=== PATIENT | male | born 1985 ===

== ENCOUNTER 2017-05-31 17:16 | Emergency (ER) | payer MEDICAID ==
[2017-05-31 17:20] VITALS: BP 158/59; PULSE 85; RESP 18; TEMP 98.3; O2SAT 99
--- NOTE | 2017-05-31 17:39 | ED PDOC ---
HPI: Altered Mental Status Time Seen by Provider: 05/31/17 17:19 Chief Complaint (Nursing): Medical Clearance Chief Complaint (Provider): Medical Clearance History Per: Patient History/Exam Limitations: None Onset/Duration Of Symptoms: Mins (prior to arrival) Current Symptoms Are (Timing): Still Present Additional Complaint(s): Arthur Fletcher is a 32 year old male who presents to the emergency department via [place] police department for psychiatric evaluation while detained stating that "he does not feed good in the head". Patient reported feeling traumatized by police for wrongful arrest. Refused to provide any history. PMD: none provided Past Medical History Reviewed: Nursing Documentation, Vital Signs Vital Signs: Last Vital Signs Temp 98.3 F 05/31/17 17:18 Pulse 85 05/31/17 17:18 Resp 18 05/31/17 17:18 BP 158/59 H 05/31/17 17:18 Pulse Ox 99 05/31/17 17:18 - Family History Family History: States: Unknown Family Hx - Allergies Allergies/Adverse Reactions: Allergies Allergy/AdvReac Type Severity Reaction Status Date / Time shellfish derived Allergy RASH Verified 05/31/17 17:17 Review of Systems Review Of Systems: ROS cannot be obtained secondary to pt's inabilty to answer questions. (AMS) - ECG O2 Sat by Pulse Oximetry: 99 (RA) Pulse Ox Interpretation: Normal Medical Decision Making Medical Decision Making: Initial Impression: Medical clearance for incarceration Initial Plan: * Crisis evaluation -See crisis note * Pt without any physical complaints, calm and cooperative, physical exam benign. No medical intervention needed at this time Scribe Attestation: Documented by Funmilayo Briones, acting as a scribe for Jailyn Hackett Provider Scribe Attestation: All medical record entries made by the Scribe were at my direction and personally dictated by me. I have reviewed the chart and agree that the record accurately reflects my personal performance of the history, physical exam, medical decision making, and the department course for this patient. I have also personally directed, reviewed, and agree with the discharge instructions and disposition. Disposition - Clinical Impression Clinical Impression: Adjustment disorder - Patient ED Disposition Is Patient to be Admitted: No - Disposition Disposition: Discharged/Transfer to Law Enforcement Disposition Time: 18:57 Condition: STABLE Additional Instructions: Patient is medically and psychiatrically cleared for incarceration at this time Instructions: Mood Disorders (ED) Forms: [facility] (Norwegian) - POA Present On Arrival: None
== END 2017-05-31 18:50 ==
LOC: H.ER 17:16 → MERGE 17:16 → H.ER 18:50
DX: Z02.89 Encounter for other administrative examinations (principal); F43.20 Adjustment disorder, unspecified

== ENCOUNTER 2017-10-19 06:30 | Emergency (ER) | payer MEDICAID ==
[2017-10-19 06:39] VITALS: BP 139/90; PULSE 112; RESP 16; TEMP 98.1; O2SAT 99
== END 2017-10-19 07:35 | disposition left against medical advice (07) ==
LOC: H.ER 06:30
DX: R07.89 Other chest pain (principal)

== ENCOUNTER 2017-12-28 02:40 | Emergency (ER) | payer MEDICAID ==
[2017-12-28 02:45] VITALS: TEMP 98.2
[2017-12-28 03:19] LABS: BASO # 0.1 K/uL (0.0-0.2); BASO % 0.3 % (0.0-2.0); EOS # 0.1 K/uL (0.0-0.7); EOS % 0.8 % (0.0-4.0); HEMOGLOBIN 14.6 g/dL (12.0-18.0); LYMPH # 1.8 K/uL (1.0-4.3); LYMPH % 12.1 % (20.0-40.0); MEAN CELL VOLUME 88.2 fl (80.0-94.0); MEAN CORPUSCULAR HEMOGLOBIN 30.1 pg (27.0-31.0); MEAN CORPUSCULAR HGB CONC 34.2 g/dL (33.0-37.0); MEAN PLATELET VOLUME 8.2 fl (7.2-11.7); MONO # 0.9 K/uL (0.0-0.8); MONO % 6.4 % (0.0-10.0); NEUT # 11.7 K/uL (1.8-7.0); NEUT % 80.4 % (50.0-75.0); RBC 4.83 Mil/uL (4.40-5.90); RED CELL DISTRIBUTION WIDTH 12.9 % (11.5-14.5); WHITE BLOOD COUNT 14.5 K/uL (4.8-10.8)
--- NOTE | 2017-12-28 03:28 | ED PDOC ---
HPI: Chest Pain Time Seen by Provider: 12/28/17 02:48 Chief Complaint (Nursing): Chest Pain Chief Complaint (Provider): Chest Pain History Per: Patient History/Exam Limitations: no limitations Onset/Duration Of Symptoms: Hrs (x5) Current Symptoms Are (Timing): Still Present Additional Complaint(s): 32 year old male with no significant past medical history, who presents to the ED complaining of chest pain x5 hours. Patient states his pain began sniffing cocaine at 9pm. Also complaining of nose pain. Denies shortness of breath, trauma, or other drug use. PMD: None provided Past Medical History Reviewed: Historical Data, Nursing Documentation, Vital Signs Vital Signs: Last Vital Signs Temp 98.2 F 12/28/17 02:43 Pulse 104 H 12/28/17 02:43 Resp 18 12/28/17 02:43 BP 139/86 12/28/17 02:43 Pulse Ox 97 12/28/17 05:27 - Medical History PMH: Asthma, Bronchitis Denies: Diabetes, HIV, HTN, Seizures, Sexually Transmitted Disease - Family History Family History: States: Unknown Family Hx, Hypertension - Social History Drugs: Cocaine - Immunization History Hx Tetanus Toxoid Vaccination: Yes (03/23/2013) Hx Influenza Vaccination: (unknown) Hx Pneumococcal Vaccination: (unknown) - Home Medications Home Medications: Ambulatory Orders Medication Instructions Recorded No Known Home Med 01/22/17 - Allergies Allergies/Adverse Reactions: Allergies Allergy/AdvReac Type Severity Reaction Status Date / Time FISH Allergy RASH Verified 07/21/17 10:32 shellfish derived Allergy RASH Verified 07/21/17 10:32 Review of Systems ROS Statement: Except As Marked, All Systems Reviewed And Found Negative ENT: Positive for: Nose Pain Cardiovascular: Positive for: Chest Pain Respiratory: Negative for: Shortness of Breath Physical Exam - Reviewed Nursing Documentation Reviewed: Yes Vital Signs Reviewed: Yes - Physical Exam Appears: Positive for: Non-toxic, No Acute Distress Head Exam: Positive for: ATRAUMATIC, NORMAL INSPECTION, NORMOCEPHALIC Skin: Positive for: Normal Color, Warm, Dry. Negative for: Rash Eye Exam: Positive for: EOMI, Normal appearance, PERRL ENT: Positive for: Other (nasal passages dry and irritated) Neck: Positive for: Normal, Painless ROM, Supple Cardiovascular/Chest: Positive for: Regular Rate, Rhythm. Negative for: Murmur Respiratory: Positive for: Normal Breath Sounds. Negative for: Respiratory Distress Gastrointestinal/Abdominal: Positive for: Normal Exam, Bowel Sounds, Soft. Negative for: Tenderness Back: Positive for: Normal Inspection. Negative for: L CVA Tenderness, R CVA Tenderness, Vertebral Tenderness Extremity: Positive for: Normal ROM. Negative for: Pedal Edema, Deformity Neurologic/Psych: Positive for: Alert, Oriented (x3). Negative for: Motor/ Sensory Deficits - Laboratory Results Result Diagrams: 12/28/17 03:16 12/28/17 03:16 - ECG O2 Sat by Pulse Oximetry: 97 (RA) Pulse Ox Interpretation: Normal Medical Decision Making Medical Decision Making: Time: 02:58 Initial Impression: Cocaine induced chest pain Initial Plan: --EKG --BMP --Troponin I --CBC w/ differential --Ativan 0.5 mg IV --Sock Boarder --Reevaluation Time: 05:20 Upon provider evaluation patient is feeling better, and requires no further treatment in the ED at this time. Counseling was provided and all questions were answered regarding diagnosis. There is agreement to discharge plan. Return if symptoms persist or worsen. Scribe Attestation: Documented by Jose David Patel, acting as a scribe for John Sanchez MD. Provider Scribe Attestation: All medical record entries made by the Scribe were at my direction and personally dictated by me. I have reviewed the chart and agree that the record accurately reflects my personal performance of the history, physical exam, medical decision making, and the department course for this patient. I have also personally directed, reviewed, and agree with the discharge instructions and disposition. Disposition - Clinical Impression Clinical Impression: Cocaine abuse, Chest pain - Patient ED Disposition Is Patient to be Admitted: No Counseled Patient/Family Regarding: Studies Performed, Diagnosis - Disposition Referrals: [facility] [Outside] Disposition: Routine/Home Disposition Time: 05:20 Condition: STABLE Instructions: Chest Pain, Cocaine Use Disorder Forms: [employer] (Polish)
[2017-12-28 03:30] LABS: BLOOD UREA NITROGEN 15 mg/dl (9-20); CALCIUM 9.2 mg/dL (8.4-10.2); GFR AFRICAN-AMERICAN > 60; GFR NON-AFRICAN AMERICAN > 60
[2017-12-28 05:44] VITALS: BP 133/76; PULSE 84; RESP 14; O2SAT 98
--- NOTE | 2017-12-29 12:13 | CARD ---
APPROVED REPORT EKG Measurement Heart [id number] <Conclusion> Normal sinus rhythm Normal ECG
== END 2017-12-28 06:19 | disposition home or self-care (01) ==
LOC: H.ER 02:40
DX: R07.89 Other chest pain (principal); F14.10 Cocaine abuse, uncomplicated; J45.909 Unspecified asthma, uncomplicated
CPT/HCPCS: 80048; 84484; 85025; 93005; 96374; 99282; J2060

== ENCOUNTER 2018-01-03 03:16 | Emergency (ER) | payer MEDICAID ==
[2018-01-03 03:38] VITALS: TEMP 98.3
[2018-01-03 03:41] VITALS: BP 123/81
--- NOTE | 2018-01-03 04:54 | ED PDOC ---
HPI: Chest Pain Time Seen by Provider: 01/03/18 03:56 Chief Complaint (Nursing): Chest Pain Chief Complaint (Provider): Chest Pain History Per: Patient History/Exam Limitations: no limitations Past Medical History Reviewed: Historical Data, Nursing Documentation, Vital Signs Vital Signs: Last Vital Signs Temp 98.3 F 01/03/18 03:36 Pulse 104 H 01/03/18 04:10 Resp 19 01/03/18 04:10 BP 123/81 01/03/18 03:36 Pulse Ox 95 01/03/18 04:10 - Medical History PMH: Asthma, Bronchitis Denies: Diabetes, HIV, HTN, Seizures, Sexually Transmitted Disease - Surgical History Surgical History: No Surg Hx - Family History Family History: States: Unknown Family Hx, Hypertension - Social History Ex-Smoker (has not smoked in the last 12 months): Yes (4-5 cigarettes/day) Alcohol: None Drugs: Cocaine, Other (Occassional Marijuana use) - Immunization History Hx Tetanus Toxoid Vaccination: Yes (03/23/2013) Hx Influenza Vaccination: (unknown) Hx Pneumococcal Vaccination: (unknown) - Home Medications Home Medications: Ambulatory Orders Medication Instructions Recorded No Known Home Med 01/22/17 - Allergies Allergies/Adverse Reactions: Allergies Allergy/AdvReac Type Severity Reaction Status Date / Time FISH Allergy RASH Verified 01/03/18 03:36 shellfish derived Allergy RASH Verified 01/03/18 03:36 Review of Systems ROS Statement: Except As Marked, All Systems Reviewed And Found Negative (As per HPI, otherwis negative) Cardiovascular: Positive for: Chest Pain Gastrointestinal: Negative for: Nausea, Vomiting, Abdominal Pain Neurological: Negative for: Headache Physical Exam - Reviewed Nursing Documentation Reviewed: Yes Vital Signs Reviewed: Yes - Physical Exam Appears: Positive for: Well, Non-toxic, No Acute Distress (Patient) - ECG O2 Sat by Pulse Oximetry: 95 Disposition - Disposition
--- NOTE | 2018-01-03 04:58 | ED PDOC ---
HPI: Chest Pain Time Seen by Provider: 01/03/18 03:56 Chief Complaint (Nursing): Chest Pain Chief Complaint (Provider): Chest Pain History Per: Patient History/Exam Limitations: no limitations Additional Complaint(s): 32 y/o male presents to the ED for evaluation of intermittent episodes of chest pain since 1am today. Patient states the pain is mid to left sided , sharp, and there no relieving factors. Pain started after snorting cocaine tonight around 8 -9p. Patient states that he has history of similar symptoms after using cocaine and was evaluated earlier in week for same. Patient denies any discomfort at present. Denies nausea, vomiting, abdominal pain, headache or any further medical complaints. PMD: none Past Medical History Reviewed: Historical Data, Nursing Documentation, Vital Signs Vital Signs: Last Vital Signs Temp 98.3 F 01/03/18 03:36 Pulse 90 01/03/18 05:04 Resp 17 01/03/18 05:04 BP 123/81 01/03/18 03:36 Pulse Ox 95 01/03/18 05:20 - Medical History PMH: Asthma, Bronchitis Denies: Diabetes, HIV, HTN, Seizures, Sexually Transmitted Disease - Surgical History Surgical History: No Surg Hx - Family History Family History: States: Unknown Family Hx, Hypertension - Social History Current smoker - smoking cessation education provided: Yes (4-5 cigarettes daily ) Alcohol: None Drugs: Cocaine, Other (Occassional Marijuana use) - Immunization History Hx Tetanus Toxoid Vaccination: Yes (03/23/2013) Hx Influenza Vaccination: (unknown) Hx Pneumococcal Vaccination: (unknown) - Home Medications Home Medications: Ambulatory Orders Medication Instructions Recorded No Known Home Med 01/22/17 - Allergies Allergies/Adverse Reactions: Allergies Allergy/AdvReac Type Severity Reaction Status Date / Time FISH Allergy RASH Verified 01/03/18 03:36 shellfish derived Allergy RASH Verified 01/03/18 03:36 Review of Systems ROS Statement: Except As Marked, All Systems Reviewed And Found Negative (As per HPI,otherwise negative) Cardiovascular: Positive for: Chest Pain Gastrointestinal: Negative for: Nausea, Vomiting, Abdominal Pain Neurological: Negative for: Headache Physical Exam - Reviewed Nursing Documentation Reviewed: Yes Vital Signs Reviewed: Yes - Physical Exam Appears: Positive for: Well, Non-toxic, No Acute Distress (Patient is resting comfortably in bed) Head Exam: Positive for: ATRAUMATIC, NORMOCEPHALIC Skin: Positive for: Normal Color, Warm, Dry Eye Exam: Positive for: Normal appearance, EOMI, PERRL, Conjunctival injection. Negative for: Nystagmus Neck: Positive for: Painless ROM, Supple Cardiovascular/Chest: Positive for: Regular Rate, Rhythm, Chest Non Tender. Negative for: Murmur Respiratory: Positive for: Normal Breath Sounds. Negative for: Decreased Breath Sounds, Accessory Muscle Use, Respiratory Distress Gastrointestinal/Abdominal: Positive for: Bowel Sounds, Soft. Negative for: Tenderness, Guarding Back: Positive for: Normal Inspection. Negative for: L CVA Tenderness, R CVA Tenderness Extremity: Positive for: Normal ROM. Negative for: Deformity Neurologic/Psych: Positive for: Alert, pulmonary function technician II-XII (grossly intact), Oriented (x3 ), Gait (steady). Negative for: Aphasia, Facial Droop - ECG O2 Sat by Pulse Oximetry: 95 (RA) Pulse Ox Interpretation: Normal Medical Decision Making Medical Decision Making: Time: 04:00 Initial Impression: Chest pain secondary to drug use Plan: Troponin I Ativan 2mg PO EKG 0430 EKG reviewed: ST @ 106bpm (-) ST elevations, normal axis. QTc 430. 0510 Troponin <0.01 Repeat HR 90, VSS On re-evaluation, patient reports improvement of symptoms, denies any chest pain at present. On exam, patient remains AAOx3, in no acute distress. Lungs clear to auscultation, cardiac RRR, abdomen soft, non-tender, repeat neuro exam shows no focal findings. Lab results reviewed and discussed with patient. Cessation from drug use encouraged. Based on history, exam and diagnostic results, plan will be for outpatient follow up. Patient instructed to follow-up with pmd / the clinic in 1-2 days without fail. Return to the emergency room at any time for any new or worsening symptoms. Patient states he fully agrees with and understands discharge instructions. States that he agrees with the plan and disposition. Verbalized and repeated discharge instructions and plan. I have given the patient opportunity to ask any additional questions. Scribe Attestation: Documented by Vanessa Jaeger acting as a scribe for RAJESH Valdez. MD Fuentes Attestation: All medical record entries made by the Scribe were at my direction and personally dictated by me. I have reviewed the chart and agree that the record accurately reflects my personal performance of the history, physical exam, medical decision making, and the department course for this patient. I have also personally directed, reviewed, and agree with the discharge instructions and disposition. Disposition - Clinical Impression Clinical Impression: Cocaine abuse, Chest pain, Substance abuse - Patient ED Disposition Is Patient to be Admitted: No Counseled Patient/Family Regarding: Studies Performed, Diagnosis, Need For Followup - Disposition Referrals: [facility] [Outside] Disposition: Routine/Home Disposition Time: 05:11 Condition: STABLE Additional Instructions: Please contact your doctor in 2 days for re-evaluation and follow up / or call one of the physicians/clinics you have been referred to that are listed on the Patient Visit Information form that is included in your discharge packet. Bring any paperwork you were given at discharge with you along with any medications you are taking to your follow up visit. Our treatment cannot replace ongoing medical care by a primary care provider (PCP) outside of the emergency department. Instructions: Chest Pain, Cocaine Use Disorder, Chest Pain That Is Not Caused by the Heart (DC), Drug Abuse and Drug Addiction (DC), Drug Abuse Treatment Forms: [employer] (Lithuanian) Print Language: ESTONIAN - POA Present On Arrival: None Results - Lab Results Lab Results: 01/03/18 04:38 Troponin I < 0.0120
[2018-01-03 05:13] VITALS: PULSE 90; RESP 17
[2018-01-03 05:15] VITALS: O2SAT 95
--- NOTE | 2018-01-04 10:34 | CARD ---
APPROVED REPORT EKG Measurement Heart [id number] <Conclusion> Sinus tachycardia Otherwise normal ECG
== END 2018-01-03 06:00 | disposition home or self-care (01) ==
LOC: H.ER 03:16
DX: F14.10 Cocaine abuse, uncomplicated (principal); F12.90 Cannabis use, unspecified, uncomplicated; J45.909 Unspecified asthma, uncomplicated

== ENCOUNTER 2018-01-03 06:03 | Emergency (ER) | payer MEDICAID ==
[2018-01-03 06:18] VITALS: BP 122/74; PULSE 90; RESP 16; TEMP 98.2; O2SAT 97
--- NOTE | 2018-01-03 06:31 | ED PDOC ---
HPI: Chest Pain Time Seen by Provider: 01/03/18 06:15 Chief Complaint (Nursing): Chest Pain History Per: Patient History/Exam Limitations: no limitations Onset/Duration Of Symptoms: Mins Current Symptoms Are (Timing): Better Additional Complaint(s): Hx of cocaine abuse p/w CP, patient was just discharged from ER after evaluation for cocaine abuse and CP. States he was being discharged and started having chest pain again. Patient requesting to come back into ER for "saline IV" and "saline nasal spray" because he "smoked too much". Denies SI/ HI. Past Medical History Vital Signs: Last Vital Signs Temp 98.2 F 01/03/18 06:15 Pulse 90 01/03/18 06:15 Resp 16 01/03/18 06:15 BP 122/74 01/03/18 06:15 Pulse Ox 97 01/03/18 06:15 - Medical History PMH: Asthma, Bronchitis Denies: Diabetes, HIV, HTN, Seizures, Sexually Transmitted Disease - Family History Family History: States: Unknown Family Hx, Hypertension - Immunization History Hx Tetanus Toxoid Vaccination: Yes (03/23/2013) Hx Influenza Vaccination: (unknown) Hx Pneumococcal Vaccination: (unknown) - Home Medications Home Medications: Ambulatory Orders Medication Instructions Recorded Sodium Chloride [[facility] 45 ml NS TID #1 spr 01/03/18 Pharmacy Saline Nasal [facility] 44 ] - Allergies Allergies/Adverse Reactions: Allergies Allergy/AdvReac Type Severity Reaction Status Date / Time FISH Allergy RASH Verified 01/03/18 06:15 shellfish derived Allergy RASH Verified 01/03/18 06:15 PARADISE Risk Score for UA/NSTEMI - PARADISE Risk Score Age > 64: NO 3 or more CAD Risk Factors: NO Known CAD (Stenosis greater than 50%): NO Aspirin use in past 7 days: NO Severe Angina: NO EKG ST changes greater than 0.5mm: NO Positive Cardiac Marker: NO PARADISE Score: 0 Risk %: 5% Curb-65 Severity Score - CURB-65 Severity Score Confusion: No Respiratory Rate greater than/equal to 30: No Systolic BP <90 or Diastolic BP less than/equal 60mmHg: No Age >64: No Curb-65 Score: 0 Percentage 30-day mortality: 0.6% Review of Systems ROS Statement: Except As Marked, All Systems Reviewed And Found Negative Cardiovascular: Positive for: Chest Pain Physical Exam - Reviewed Nursing Documentation Reviewed: Yes Vital Signs Reviewed: Yes - Physical Exam Appears: Positive for: Well, Non-toxic, No Acute Distress Head Exam: Positive for: ATRAUMATIC, NORMAL INSPECTION, NORMOCEPHALIC Skin: Positive for: Normal Color, Warm, DRY Eye Exam: Positive for: EOMI, Normal appearance, PERRL ENT: Positive for: Normal ENT Inspection Neck: Positive for: Normal, Painless ROM Cardiovascular/Chest: Positive for: Regular Rate, Rhythm Respiratory: Positive for: CNT, Normal Breath Sounds Gastrointestinal/Abdominal: Positive for: Normal Exam, Bowel Sounds, Soft Back: Positive for: Normal Inspection Extremity: Positive for: Normal ROM Neurologic/Psych: Positive for: Alert, Oriented - ECG O2 Sat by Pulse Oximetry: 97 Medical Decision Making Medical Decision Making: Patient re-evaluated after complaint of chest pain in waiting room. EKG is non- ischemic, NSR w/ no ST-T wave changes. Advised patient to stop using cocaine. Return precautions discussed. Disposition - Clinical Impression Clinical Impression: Chest pain, Cocaine abuse - Disposition Referrals: [facility] [Outside] Disposition Time: 06:35 Condition: STABLE Prescriptions: Sodium Chloride [[facility] Saline Nasal [place] [facility] ] 45 ml NS TID #1 spr Instructions: Cocaine Use Disorder, Chest Pain Forms: [facility] (Icelandic)
== END 2018-01-03 06:33 | disposition home or self-care (01) ==
LOC: H.ER 06:03
DX: R07.89 Other chest pain (principal); F14.10 Cocaine abuse, uncomplicated; J45.909 Unspecified asthma, uncomplicated

== ENCOUNTER 2018-02-12 23:55 | Emergency (ER) | payer MEDICAID ==
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
[2018-02-13] MEDS ORDERED: Albuterol-Ipratrop 3 mg / 0.5 (3 ml) UD INH STA (00:55)
[2018-02-13] MEDS ORDERED: Albuterol-Ipratrop 3 mg / 0.5 (3 ml) UD ONE (01:10)
[2018-02-13 01:14] LABS: BASO # 0.1 K/uL (0.0-0.2); BASO % 0.7 % (0.0-2.0); EOS # 0.1 K/uL (0.0-0.7); HEMOGLOBIN 13.6 g/dL (12.0-18.0); LYMPH # 2.1 K/uL (1.0-4.3); MEAN CELL VOLUME 87.2 fl (80.0-94.0); MEAN CORPUSCULAR HEMOGLOBIN 29.5 pg (27.0-31.0); MEAN CORPUSCULAR HGB CONC 33.8 g/dL (33.0-37.0); MEAN PLATELET VOLUME 7.7 fl (7.2-11.7); MONO # 0.5 K/uL (0.0-0.8); MONO % 5.1 % (0.0-10.0); NEUT # 7.7 K/uL (1.8-7.0); NEUT % 73.2 % (50.0-75.0); RBC 4.6 Mil/uL (4.40-5.90); RED CELL DISTRIBUTION WIDTH 13.2 % (11.5-14.5); WHITE BLOOD COUNT 10.5 K/uL (4.8-10.8)
[2018-02-13 01:23] LABS: ALBUMIN 3.9 g/dL (3.5-5.0); ALT/SGPT 42 U/L (21-72); AST/SGOT 23 U/L (17-59); BLOOD UREA NITROGEN 17 mg/dl (9-20); CALCIUM 9.1 mg/dL (8.4-10.2); GFR AFRICAN-AMERICAN > 60; GFR NON-AFRICAN AMERICAN > 60
[2018-02-13 02:16] VITALS: BP 124/70; TEMP 98.4
[2018-02-13 03:03] VITALS: PULSE 81; RESP 18; O2SAT 97
--- NOTE | 2018-02-13 09:10 | RAD ---
HISTORY: chest pain COMPARISON: Chest radiograph dated 03/28/2016 FINDINGS: LUNGS: No active pulmonary disease. PLEURA: No significant pleural effusion identified, no pneumothorax apparent. CARDIOVASCULAR: Normal. OSSEOUS STRUCTURES: No significant abnormalities. VISUALIZED UPPER ABDOMEN: Normal. OTHER FINDINGS: None. IMPRESSION: No active disease.
== END 2018-02-13 02:50 | disposition home or self-care (01) ==
LOC: H.ER 23:55
DX: R07.89 Other chest pain (principal); J45.909 Unspecified asthma, uncomplicated; F12.90 Cannabis use, unspecified, uncomplicated

== ENCOUNTER 2018-02-13 03:06 | Emergency (ER) | payer MEDICAID ==
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
[2018-02-13 03:30] VITALS: TEMP 98
[2018-02-13 04:17] VITALS: BP 118/74; PULSE 82; RESP 18; O2SAT 99
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
--- NOTE | 2018-02-14 11:35 | CARD ---
APPROVED REPORT EKG Measurement Heart [id number] <Conclusion> Normal sinus rhythm Normal ECG
== END 2018-02-13 04:17 | disposition home or self-care (01) ==
LOC: H.ER 03:06
DX: S20.219A Contusion of unspecified front wall of thorax, initial encounter (principal); S40.022A Contusion of left upper arm, initial encounter; Y04.0XXA Assault by unarmed brawl or fight, initial encounter; Y92.89 Other specified places as the place of occurrence of the external cause; J45.909 Unspecified asthma, uncomplicated

== ENCOUNTER 2018-02-20 01:04 | Emergency (ER) | payer MEDICAID ==
[2018-02-20 03:17] VITALS: BP 168/71; PULSE 79; RESP 17; TEMP 98.2; O2SAT 100
--- NOTE | 2018-02-20 03:51 | ED PDOC ---
Lower Extremity Pain/Injury Time Seen by Provider: 02/20/18 03:27 Chief Complaint (Nursing): Lower Extremity Problem/Injury Chief Complaint (Provider): left foot pain History Per: Patient History/Exam Limitations: no limitations Onset/Duration Of Symptoms: Days (1) Current Symptoms Are (Timing): Still Present Additional Complaint(s): 32 y/o male presents with left foot pain x 1 day. Patient states he did a lot of walking today and now the bottom of his foot hurts. Denies fever, known trauma, swelling to foot, numbness/weakness left lower extremity, limitation of movement. Patient also reports chest pain that started earlier today. Patient states pain started after using cocaine. Patient with multiple ED visits for same. Denies fever, cough, congestion, shortness of breath, palpitations. Past Medical History Reviewed: Historical Data, Nursing Documentation, Vital Signs Vital Signs: Last Vital Signs Temp 98.2 F 02/20/18 01:33 Pulse 79 02/20/18 01:33 Resp 17 02/20/18 01:33 BP 168/71 H 02/20/18 01:33 Pulse Ox 100 02/20/18 01:33 - Medical History PMH: Asthma, Bronchitis Denies: Diabetes, Hepatitis, HIV, HTN, Seizures, Sexually Transmitted Disease - Family History Family History: States: Unknown Family Hx, Hypertension - Immunization History Hx Tetanus Toxoid Vaccination: Yes (03/23/2013) Hx Influenza Vaccination: (unknown) Hx Pneumococcal Vaccination: (unknown) - Home Medications Home Medications: Ambulatory Orders Medication Instructions Recorded Sodium Chloride [Good Neighbor 45 ml NS TID #1 spr 01/03/18 Pharmacy Saline Nasal [place] 44 ] Ibuprofen [Motrin] 600 mg PO Q6 PRN #15 tab 02/13/18 Naproxen [Naprosyn] 500 mg PO Q12 PRN #20 tablet 02/20/18 - Allergies Allergies/Adverse Reactions: Allergies Allergy/AdvReac Type Severity Reaction Status Date / Time FISH Allergy RASH Verified 01/03/18 06:15 shellfish derived Allergy RASH Verified 01/03/18 06:15 Review of Systems ROS Statement: Except As Marked, All Systems Reviewed And Found Negative Cardiovascular: Positive for: Chest Pain Musculoskeletal: Positive for: Foot Pain (left) Physical Exam - Reviewed Nursing Documentation Reviewed: Yes Vital Signs Reviewed: Yes - Physical Exam Appears: Positive for: Well, Non-toxic, No Acute Distress (sleeping) Head Exam: Positive for: ATRAUMATIC, NORMAL INSPECTION, NORMOCEPHALIC Skin: Positive for: Normal Color Eye Exam: Positive for: Normal appearance ENT: Positive for: Normal ENT Inspection Cardiovascular/Chest: Positive for: Regular Rate, Rhythm Respiratory: Positive for: Normal Breath Sounds Gastrointestinal/Abdominal: Positive for: Normal Exam Back: Positive for: Normal Inspection Extremity: Positive for: Normal ROM, Other (blister noted plantar left foot base of 1st digit. No odor, drainage, redness noted) Neurologic/Psych: Positive for: Alert, Oriented - Laboratory Results Result Diagrams: 02/20/18 04:28 02/20/18 04:28 - ECG ECG: Positive for: Viewed By Me (reviewed by ED attending) ECG Rhythm: Positive for: Sinus Rhythm O2 Sat by Pulse Oximetry: 100 - Progress ED Course And Treament: labs, ekg, toradol Patient educated on findings, discharged with instructions to f/up podiatry, pmd Advised to stop cocaine use. Rx Naproxen given. Blister wrapped in padded dressing Return precautions given Disposition - Clinical Impression Clinical Impression: Chest pain, Cocaine abuse - Patient ED Disposition Is Patient to be Admitted: No Counseled Patient/Family Regarding: Studies Performed, Diagnosis, Need For Followup - Disposition Referrals: [facility] [Outside] [facility] [Outside] Disposition: Routine/Home Disposition Time: 05:44 Condition: IMPROVED Prescriptions: Naproxen [Naprosyn] 500 mg PO Q12 PRN #20 tablet PRN Reason: Pain, Moderate (4-7) Instructions: Blisters, Chest Pain, Drug Abuse and Drug Addiction (DC)
[2018-02-20 04:32] LABS: BASO # 0.1 K/uL (0.0-0.2); BASO % 0.5 % (0.0-2.0); EOS # 0.4 K/uL (0.0-0.7); EOS % 3.8 % (0.0-4.0); HEMOGLOBIN 13.6 g/dL (12.0-18.0); LYMPH # 2.9 K/uL (1.0-4.3); LYMPH % 28.9 % (20.0-40.0); MEAN CELL VOLUME 87.5 fl (80.0-94.0); MEAN CORPUSCULAR HEMOGLOBIN 29.7 pg (27.0-31.0); MEAN PLATELET VOLUME 8.1 fl (7.2-11.7); MONO # 0.9 K/uL (0.0-0.8); MONO % 9.1 % (0.0-10.0); NEUT # 5.7 K/uL (1.8-7.0); NEUT % 57.7 % (50.0-75.0); NRBC % 0.4 % (0.0-0.0); RBC 4.6 Mil/uL (4.40-5.90); RED CELL DISTRIBUTION WIDTH 13.7 % (11.5-14.5); WHITE BLOOD COUNT 9.9 K/uL (4.8-10.8)
[2018-02-20 04:45] LABS: ALBUMIN 3.5 g/dL (3.5-5.0); ALT/SGPT 36 U/L (21-72); AST/SGOT 22 U/L (17-59); BLOOD UREA NITROGEN 19 mg/dl (9-20); CALCIUM 9.1 mg/dL (8.4-10.2); GFR AFRICAN-AMERICAN > 60; GFR NON-AFRICAN AMERICAN > 60
--- NOTE | 2018-02-20 10:17 | CARD ---
APPROVED REPORT EKG Measurement Heart [id number] <Conclusion> Normal sinus rhythm Normal ECG
== END 2018-02-20 05:45 | disposition home or self-care (01) ==
LOC: H.ER 01:04
DX: R07.89 Other chest pain (principal); F14.10 Cocaine abuse, uncomplicated; J45.909 Unspecified asthma, uncomplicated
CPT/HCPCS: 80053; 84484; 85025; 93005; 96374; 99283; J1885

== ENCOUNTER 2018-02-25 03:23 | Emergency (ER) | payer MEDICAID ==
[2018-02-25 03:30] VITALS: BP 140/71; PULSE 88; RESP 18; TEMP 97.8; O2SAT 99
--- NOTE | 2018-02-25 03:43 | ED PDOC ---
HPI: Psych/Substance Abuse Time Seen by Provider: 02/25/18 03:32 Chief Complaint (Nursing): Alcohol Ingestion Chief Complaint (Provider): substance abuse History Per: EMS Additional Complaint(s): 32 y/o male brought in by EMS for evaluation of substance abuse. Patient states he used PCP tonight. Past Medical History Reviewed: Historical Data, Nursing Documentation, Vital Signs Vital Signs: Last Vital Signs Temp 97.8 F 02/25/18 03:26 Pulse 88 02/25/18 03:26 Resp 18 02/25/18 03:26 BP 140/71 02/25/18 03:26 Pulse Ox 99 02/25/18 03:26 - Medical History PMH: Asthma, Bronchitis Denies: Diabetes, Hepatitis, HIV, HTN, Seizures, Sexually Transmitted Disease - Family History Family History: States: Unknown Family Hx, Hypertension - Immunization History Hx Tetanus Toxoid Vaccination: Yes (03/23/2013) Hx Influenza Vaccination: (unknown) Hx Pneumococcal Vaccination: (unknown) - Home Medications Home Medications: Ambulatory Orders Medication Instructions Recorded Sodium Chloride [Good Neighbor 45 ml NS TID #1 spr 01/03/18 Pharmacy Saline Nasal [place] 44 ] Ibuprofen [Motrin] 600 mg PO Q6 PRN #15 tab 02/13/18 Naproxen [Naprosyn] 500 mg PO Q12 PRN #20 tablet 02/20/18 - Allergies Allergies/Adverse Reactions: Allergies Allergy/AdvReac Type Severity Reaction Status Date / Time FISH Allergy RASH Verified 01/03/18 06:15 shellfish derived Allergy RASH Verified 01/03/18 06:15 Review of Systems ROS Statement: Except As Marked, All Systems Reviewed And Found Negative Physical Exam - Reviewed Nursing Documentation Reviewed: Yes Vital Signs Reviewed: Yes - Physical Exam Appears: Positive for: Well, Non-toxic, No Acute Distress Head Exam: Positive for: ATRAUMATIC, NORMAL INSPECTION, NORMOCEPHALIC Skin: Positive for: Normal Color Eye Exam: Positive for: Normal appearance ENT: Positive for: Normal ENT Inspection Cardiovascular/Chest: Positive for: Regular Rate, Rhythm Respiratory: Positive for: Normal Breath Sounds Gastrointestinal/Abdominal: Positive for: Normal Exam Back: Positive for: Normal Inspection Extremity: Positive for: Normal ROM Neurologic/Psych: Positive for: Alert, Oriented - ECG O2 Sat by Pulse Oximetry: 99 - Progress ED Course And Treament: accucheck, alcohol, UDS 6:00 Patient awake, alert, oriented x3. Ambulating steady gait Stable for discharge Disposition - Clinical Impression Clinical Impression: Polysubstance abuse - Patient ED Disposition Is Patient to be Admitted: No Counseled Patient/Family Regarding: Studies Performed, Diagnosis, Need For Followup - Disposition Disposition: Routine/Home Disposition Time: 06:00 Condition: STABLE Instructions: Polysubstance Abuse
== END 2018-02-25 06:15 | disposition home or self-care (01) ==
LOC: H.ER 03:23
DX: F19.10 Other psychoactive substance abuse, uncomplicated (principal)

== ENCOUNTER 2018-03-17 05:24 | Emergency (ER) | payer MEDICAID ==
[2018-03-17 05:40] VITALS: BP 119/79; PULSE 93; RESP 20; TEMP 98.4; O2SAT 97
--- NOTE | 2018-03-17 06:00 | ED PDOC ---
HPI: Chest Pain Time Seen by Provider: 03/17/18 05:34 Chief Complaint (Nursing): Chest Pain History Per: Patient History/Exam Limitations: no limitations Onset/Duration Of Symptoms: Hrs Additional Complaint(s): Patient with PMHx of drug abuse presenting with chest pain, states he used a gram of cocaine, smoked cigarettes and drank alcohol, states he used between 8PM and 2AM, once he stopped using he felt the pain, worse with movement and rib cage expansion. Denies fevers, chills. Denies nausea, vomiting, suicidal or homicidal ideation. Past Medical History Reviewed: Historical Data, Nursing Documentation Vital Signs: Last Vital Signs Temp 98.4 F 03/17/18 05:38 Pulse 93 H 03/17/18 05:38 Resp 20 03/17/18 05:38 BP 119/79 03/17/18 05:38 Pulse Ox 97 03/17/18 06:01 - Medical History PMH: Asthma, Bronchitis Denies: Diabetes, Hepatitis, HIV, HTN, Seizures, Sexually Transmitted Disease - Family History Family History: States: Unknown Family Hx, Hypertension - Social History Current smoker - smoking cessation education provided: Yes Alcohol: > 2 Drinks/Day Drugs: Cocaine - Immunization History Hx Tetanus Toxoid Vaccination: Yes (03/23/2013) Hx Influenza Vaccination: (unknown) Hx Pneumococcal Vaccination: (unknown) - Home Medications Home Medications: Ambulatory Orders Medication Instructions Recorded Sodium Chloride [Good Neighbor 45 ml NS TID #1 spr 01/03/18 Pharmacy Saline Nasal [place] 44 ] Ibuprofen [Motrin] 600 mg PO Q6 PRN #15 tab 02/13/18 Naproxen [Naprosyn] 500 mg PO Q12 PRN #20 tablet 02/20/18 - Allergies Allergies/Adverse Reactions: Allergies Allergy/AdvReac Type Severity Reaction Status Date / Time FISH Allergy RASH Verified 01/03/18 06:15 shellfish derived Allergy RASH Verified 01/03/18 06:15 Review of Systems ROS Statement: Except As Marked, All Systems Reviewed And Found Negative Cardiovascular: Positive for: Chest Pain Physical Exam - Reviewed Nursing Documentation Reviewed: Yes - Physical Exam Appears: Positive for: Well, Non-toxic, No Acute Distress Head Exam: Positive for: ATRAUMATIC, NORMAL INSPECTION, NORMOCEPHALIC Skin: Positive for: Normal Color, Warm, DRY Eye Exam: Positive for: EOMI, Normal appearance, PERRL ENT: Positive for: Normal ENT Inspection Neck: Positive for: Normal, Painless ROM Cardiovascular/Chest: Positive for: Regular Rate, Rhythm Respiratory: Positive for: CNT, Normal Breath Sounds Gastrointestinal/Abdominal: Positive for: Normal Exam, Soft Back: Positive for: Normal Inspection Extremity: Positive for: Normal ROM Neurologic/Psych: Positive for: Alert, Oriented - Laboratory Results Result Diagrams: 03/17/18 06:10 03/17/18 06:10 - ECG O2 Sat by Pulse Oximetry: 97 Pulse Ox Interpretation: Normal Medical Decision Making Medical Decision MakinAM A/P: Hx of cocaine abuse presenting with chest pain -EKG shows NSR at HR of 95, no ST-T wave changes -normal vital signs -likely vasospasm 2/2 to cocaine abuse -will check labs, give NSAID and muscle relaxant 7AM Patient feeling better. Warned patient against repetitive use of cocaine. Will refer to outpatient. Well appearing with normal vitals. Disposition - Clinical Impression Clinical Impression: Cocaine abuse, Chest pain, Alcohol abuse - Patient ED Disposition Is Patient to be Admitted: No - Disposition Referrals: [facility] [Outside] Disposition: Routine/Home Disposition Time: 06:59 Condition: IMPROVED Instructions: Cocaine Use Disorder, Drug Abuse and Drug Addiction (DC), Alcohol Abuse and Alcoholism (DC), Chest Pain Forms: [employer] (Bulgarian)
[2018-03-17 06:30] LABS: MEAN CELL VOLUME 88.1 fl (80.0-94.0); MEAN CORPUSCULAR HEMOGLOBIN 29.8 pg (27.0-31.0); MEAN CORPUSCULAR HGB CONC 33.9 g/dL (33.0-37.0); RBC 4.68 Mil/uL (4.40-5.90); RED CELL DISTRIBUTION WIDTH 14.3 % (11.5-14.5); WHITE BLOOD COUNT 14.5 K/uL (4.8-10.8)
[2018-03-17 06:40] LABS: BLOOD UREA NITROGEN 16 mg/dl (9-20); CALCIUM 8.9 mg/dL (8.4-10.2); GFR AFRICAN-AMERICAN > 60; GFR NON-AFRICAN AMERICAN > 60
[2018-03-17 06:51] LABS: CK-MB 2.53 ng/mL (0.0-3.38)
[2018-03-17 06:59] LABS: BARBITURATES, UR NEGATIVE (NEGATIVE)
[2018-03-17 07:00] LABS: BENZODIAZEPINES, UR NEGATIVE (NEGATIVE); OPIATES, UR NEGATIVE (NEGATIVE); PHENCYCLIDINE, UR NEGATIVE (NEGATIVE)
== END 2018-03-17 07:20 | disposition home or self-care (01) ==
LOC: H.ER 05:24
DX: F14.10 Cocaine abuse, uncomplicated (principal); F10.10 Alcohol abuse, uncomplicated; R07.9 Chest pain, unspecified; F17.210 Nicotine dependence, cigarettes, uncomplicated; J45.909 Unspecified asthma, uncomplicated

== ENCOUNTER 2018-03-19 01:41 | Emergency (ER) | payer MEDICAID ==
[2018-03-19 03:01] LABS: BASO % 0.3 % (0.0-2.0); EOS # 0.1 K/uL (0.0-0.7); EOS % 0.6 % (0.0-4.0); HEMOGLOBIN 13.7 g/dL (12.0-18.0); LYMPH # 1.9 K/uL (1.0-4.3); LYMPH % 16.5 % (20.0-40.0); MEAN CELL VOLUME 87.3 fl (80.0-94.0); MEAN CORPUSCULAR HEMOGLOBIN 29.7 pg (27.0-31.0); MEAN CORPUSCULAR HGB CONC 34.1 g/dL (33.0-37.0); MONO # 0.9 K/uL (0.0-0.8); MONO % 7.8 % (0.0-10.0); NEUT # 8.8 K/uL (1.8-7.0); NEUT % 74.8 % (50.0-75.0); RBC 4.61 Mil/uL (4.40-5.90); WHITE BLOOD COUNT 11.8 K/uL (4.8-10.8)
[2018-03-19 03:08] LABS: ALB/GLOB RATIO 1.1 (1.0-2.1); ALBUMIN 4.1 g/dL (3.5-5.0); ALT/SGPT 66 U/L (21-72); AST/SGOT 42 U/L (17-59); BLOOD UREA NITROGEN 18 mg/dl (9-20); CALCIUM 8.6 mg/dL (8.4-10.2); GFR AFRICAN-AMERICAN > 60; GFR NON-AFRICAN AMERICAN > 60
--- NOTE | 2018-03-19 04:40 | ED PDOC ---
HPI: Psych/Substance Abuse Time Seen by Provider: 03/19/18 02:12 Chief Complaint (Nursing): Substance Abuse Chief Complaint (Provider): Substance abuse, vomiting History Per: Patient Additional Complaint(s): 32yo male, well known to ER for multiple visits, presents with complaints of abdominal pain and vomiting. Patient admits to using PCP, crack and alcohol today. He denies any fever, chills, chest pain, SI/HI. He has no other medical complaints. Past Medical History Reviewed: Historical Data, Nursing Documentation, Vital Signs Vital Signs: Last Vital Signs Temp 98.8 F 03/19/18 01:55 Pulse 93 H 03/19/18 01:55 Resp 17 03/19/18 01:55 BP 122/69 03/19/18 01:55 Pulse Ox 98 03/19/18 01:55 - Medical History PMH: Asthma, Bronchitis Denies: Diabetes, Hepatitis, HIV, HTN, Seizures, Sexually Transmitted Disease - Surgical History Surgical History: No Surg Hx - Family History Family History: States: Unknown Family Hx, Hypertension - Social History Drugs: Cocaine, Opiates - Immunization History Hx Tetanus Toxoid Vaccination: Yes (03/23/2013) Hx Influenza Vaccination: (unknown) Hx Pneumococcal Vaccination: (unknown) - Home Medications Home Medications: Ambulatory Orders Medication Instructions Recorded Sodium Chloride [Good Neighbor 45 ml NS TID #1 spr 01/03/18 Pharmacy Saline Nasal [place] 44 ] Ibuprofen [Motrin] 600 mg PO Q6 PRN #15 tab 02/13/18 Naproxen [Naprosyn] 500 mg PO Q12 PRN #20 tablet 02/20/18 - Allergies Allergies/Adverse Reactions: Allergies Allergy/AdvReac Type Severity Reaction Status Date / Time FISH Allergy RASH Verified 01/03/18 06:15 shellfish derived Allergy RASH Verified 01/03/18 06:15 Review of Systems ROS Statement: Except As Marked, All Systems Reviewed And Found Negative Constitutional: Negative for: Chills Cardiovascular: Negative for: Chest Pain Respiratory: Negative for: Shortness of Breath Gastrointestinal: Positive for: Vomiting, Abdominal Pain Psych: Negative for: Suicidal ideation Physical Exam - Reviewed Nursing Documentation Reviewed: Yes Vital Signs Reviewed: Yes - Physical Exam Appears: Positive for: No Acute Distress Skin: Positive for: Normal Color Eye Exam: Positive for: Normal appearance Neck: Positive for: Supple Cardiovascular/Chest: Positive for: Regular Rate, Rhythm Respiratory: Positive for: Normal Breath Sounds. Negative for: Respiratory Distress Gastrointestinal/Abdominal: Positive for: Normal Exam, Soft. Negative for: Tenderness Extremity: Positive for: Normal ROM. Negative for: Deformity Neurologic/Psych: Positive for: Alert, Oriented, Other (slurred speech) - Laboratory Results Result Diagrams: 03/19/18 02:55 03/19/18 02:55 - ECG O2 Sat by Pulse Oximetry: 98 (RA) Pulse Ox Interpretation: Normal Medical Decision Making Medical Decision Making: Impression: Substance abuse Plan: -- Labs -- UDS Time: 623 Labs reviewed and shows no clinically significant abnormalities. Patient resting comfortably in ER all night and did not have any episode of vomiting. Patient is stable upon discharge home. Diagnosis: Polysubstance abuse Scribe Attestation: Documented by Susie Tillman, acting as a scribe for Sean Jaramillo MD Provider Scribe Attestation: All medical record entries made by the Scribe were at my direction and personally dictated by me. I have reviewed the chart and agree that the record accurately reflects my personal performance of the history, physical exam, medical decision making, and the department course for this patient. I have also personally directed, reviewed, and agree with the discharge instructions and disposition. Disposition - Clinical Impression Clinical Impression: Drug abuse - Disposition Disposition: Routine/Home Disposition Time: 06:25 Condition: STABLE Instructions: Drug Abuse Treatment Forms: [employer] (Belarusian)
[2018-03-19 06:38] VITALS: BP 129/88; PULSE 79; RESP 14; TEMP 97.9; O2SAT 99
== END 2018-03-19 06:37 | disposition home or self-care (01) ==
LOC: H.ER 01:41
DX: F19.10 Other psychoactive substance abuse, uncomplicated (principal); J45.909 Unspecified asthma, uncomplicated

== ENCOUNTER 2018-03-27 05:29 | Emergency (ER) | payer MEDICAID ==
[2018-03-27 05:51] VITALS: O2SAT 100
--- NOTE | 2018-03-27 06:01 | ED PDOC ---
Lower Extremity Pain/Injury Time Seen by Provider: 03/27/18 05:44 Chief Complaint (Nursing): Chest Pain History Per: Patient History/Exam Limitations: no limitations Onset/Duration Of Symptoms: Days Current Symptoms Are (Timing): Better Severity: Mild Additional History Per: Patient Additional Complaint(s): Chronic drug abuser and frequent ER patient presenting with crack cocaine abuse , states he used "a lot" because of stress at home and had chest pain, states he was kicked out of his house and has been "walking a lot" And now has feet pain because he didnt' have a place to rest. Denies SOB, fevers, chills or other complaints. Past Medical History Vital Signs: Last Vital Signs Temp 98.4 F 03/27/18 05:48 Pulse 84 03/27/18 05:48 Resp 16 03/27/18 05:48 BP 130/80 03/27/18 05:48 Pulse Ox 100 03/27/18 05:48 - Medical History PMH: Asthma, Bronchitis Denies: Diabetes, Hepatitis, HIV, HTN, Seizures, Sexually Transmitted Disease - Family History Family History: States: Unknown Family Hx, Hypertension - Immunization History Hx Tetanus Toxoid Vaccination: Yes (03/23/2013) Hx Influenza Vaccination: (unknown) Hx Pneumococcal Vaccination: (unknown) - Home Medications Home Medications: Ambulatory Orders Medication Instructions Recorded Sodium Chloride [Good Neighbor 45 ml NS TID #1 spr 01/03/18 Pharmacy Saline Nasal [place] 44 ] Ibuprofen [Motrin] 600 mg PO Q6 PRN #15 tab 02/13/18 Naproxen [Naprosyn] 500 mg PO Q12 PRN #20 tablet 02/20/18 - Allergies Allergies/Adverse Reactions: Allergies Allergy/AdvReac Type Severity Reaction Status Date / Time FISH Allergy RASH Verified 03/27/18 05:47 shellfish derived Allergy RASH Verified 03/27/18 05:47 Review of Systems ROS Statement: Except As Marked, All Systems Reviewed And Found Negative Cardiovascular: Positive for: Chest Pain Physical Exam - Reviewed Nursing Documentation Reviewed: Yes Vital Signs Reviewed: Yes - Physical Exam Appears: Positive for: Well, Non-toxic, No Acute Distress Head Exam: Positive for: ATRAUMATIC, NORMAL INSPECTION, NORMOCEPHALIC Skin: Positive for: Normal Color, Warm, DRY Eye Exam: Positive for: EOMI, Normal appearance, PERRL ENT: Positive for: Normal ENT Inspection Neck: Positive for: Normal, Painless ROM Cardiovascular/Chest: Positive for: Regular Rate, Rhythm Respiratory: Positive for: CNT, Normal Breath Sounds Gastrointestinal/Abdominal: Positive for: Normal Exam, Soft Back: Positive for: Normal Inspection Extremity: Positive for: Normal ROM. Negative for: Tenderness, Pedal Edema, Calf Tenderness, Capillary Refill, Deformity, Swelling Neurologic/Psych: Positive for: Alert, Oriented - ECG ECG Rhythm: Positive for: Normal QRS, Normal ST Segment, Sinus Rhythm O2 Sat by Pulse Oximetry: 100 Pulse Ox Interpretation: Normal Medical Decision Making Medical Decision Making: Patient complaining of chest pain s/p crack cocaine abuse. Patient is well appearing, normal vitals, normal EKG. Advised to abstain from further crack/ cocaine abuse. No acute abnormality on foot exam, will refer to podiatry. Patient stable and suitable for outpatient followup. Disposition - Clinical Impression Clinical Impression: Cocaine abuse - Patient ED Disposition Is Patient to be Admitted: No - Disposition Referrals: Podiatry Clinic [Outside] Disposition: Routine/Home Disposition Time: 06:01 Condition: STABLE Instructions: Cocaine Use Disorder, Drug Abuse and Drug Addiction (DC) Forms: [employer] ([place] Arabian)
[2018-03-27 07:19] VITALS: BP 122/74; PULSE 76; RESP 18; TEMP 98.6
== END 2018-03-27 07:22 | disposition home or self-care (01) ==
LOC: H.ER 05:29
DX: F14.10 Cocaine abuse, uncomplicated (principal)

== ENCOUNTER 2018-03-29 23:46 | Emergency (ER) | payer MEDICAID ==
[2018-03-29 23:59] VITALS: BP 112/77; PULSE 94; RESP 16; TEMP 98.6; O2SAT 99
--- NOTE | 2018-03-30 00:07 | ED PDOC ---
Lower Extremity Pain/Injury Chief Complaint (Nursing): Lower Extremity Problem/Injury History Per: Patient History/Exam Limitations: no limitations Onset/Duration Of Symptoms: Days Additional Complaint(s): Patient comes to ER for foot pain x 3 days, states he stays on his feet all day. Patient was seen for same 2 days ago and was given referral for podiatry. Patient admits to crack use. Past Medical History Reviewed: Historical Data, Nursing Documentation, Vital Signs Vital Signs: Last Vital Signs Temp 98.6 F 03/29/18 23:56 Pulse 94 H 03/29/18 23:56 Resp 16 03/29/18 23:56 BP 112/77 03/29/18 23:56 Pulse Ox 99 03/29/18 23:56 - Medical History PMH: Asthma, Bronchitis Denies: Diabetes, Hepatitis, HIV, HTN, Seizures, Sexually Transmitted Disease - Family History Family History: States: Unknown Family Hx, Hypertension - Immunization History Hx Tetanus Toxoid Vaccination: Yes (03/23/2013) Hx Influenza Vaccination: (unknown) Hx Pneumococcal Vaccination: (unknown) - Home Medications Home Medications: Ambulatory Orders Medication Instructions Recorded Sodium Chloride [Good Neighbor 45 ml NS TID #1 spr 01/03/18 Pharmacy Saline Nasal [place] 44 ] Ibuprofen [Motrin] 600 mg PO Q6 PRN #15 tab 02/13/18 Naproxen [Naprosyn] 500 mg PO Q12 PRN #20 tablet 02/20/18 - Allergies Allergies/Adverse Reactions: Allergies Allergy/AdvReac Type Severity Reaction Status Date / Time FISH Allergy RASH Verified 03/29/18 23:56 shellfish derived Allergy RASH Verified 03/29/18 23:56 Review of Systems ROS Statement: Except As Marked, All Systems Reviewed And Found Negative Musculoskeletal: Positive for: Foot Pain Physical Exam - Reviewed Nursing Documentation Reviewed: Yes Vital Signs Reviewed: Yes - Physical Exam Appears: Positive for: Well, Non-toxic, No Acute Distress Head Exam: Positive for: ATRAUMATIC, NORMAL INSPECTION, NORMOCEPHALIC Skin: Positive for: Normal Color, Warm, DRY Eye Exam: Positive for: EOMI, Normal appearance, PERRL ENT: Positive for: Normal ENT Inspection Neck: Positive for: Normal, Painless ROM Cardiovascular/Chest: Positive for: Regular Rate, Rhythm Respiratory: Positive for: CNT, Normal Breath Sounds Gastrointestinal/Abdominal: Positive for: Normal Exam, Soft Back: Positive for: Normal Inspection Extremity: Positive for: Normal ROM, Other (Foot corns) Neurologic/Psych: Positive for: Alert, Oriented - ECG O2 Sat by Pulse Oximetry: 99 Medical Decision Making Medical Decision Making: No acute medical intervention necessary for foot corns. Will refer to podiatry. Disposition - Clinical Impression Clinical Impression: Knipp[place] of foot - Patient ED Disposition Is Patient to be Admitted: No - Disposition Referrals: Podiatry Clinic [Outside] Disposition: Routine/Home Disposition Time: 00:09 Condition: STABLE Instructions: Corns and Calluses
== END 2018-03-30 00:35 | disposition home or self-care (01) ==
LOC: H.ER 23:46
DX: L84 Corns and callosities (principal)

== ENCOUNTER 2018-04-13 01:24 | Emergency (ER) | payer MEDICAID ==
[2018-04-13 01:42] VITALS: TEMP 98.1
--- NOTE | 2018-04-13 01:43 | ED PDOC ---
HPI: General Adult Time Seen by Provider: 04/13/18 01:33 Chief Complaint (Provider): Abdominal discomfort after eating pashto food History Per: Patient History/Exam Limitations: no limitations Onset/Duration Of Symptoms: Days Have you had recent travel within the past 21 days to any of the following countries: [place], [place], [place] or [place]?: No Additional Complaint(s): 32 yo male with history of bipolar, anxiety, asthma and drug abuse presents with diffuse abdominal discomfort after eating [place]o food. Pt reports one episode of vomiting. Denies fever/chills. Pt states he has also been smoking a lot of crack and PCP the last week. Past Medical History Reviewed: Historical Data, Nursing Documentation, Vital Signs Vital Signs: Last Vital Signs Temp 98.1 F 04/13/18 01:37 Pulse 97 H 04/13/18 01:37 Resp 18 04/13/18 01:37 BP 113/67 04/13/18 01:37 Pulse Ox 98 04/13/18 01:37 - Medical History PMH: Anxiety, Asthma, Bipolar Disorder, Bronchitis, Depression Denies: Diabetes, Hepatitis, HIV, HTN, Chronic Kidney Disease, Seizures, Sexually Transmitted Disease - Family History Family History: States: Unknown Family Hx, Hypertension - Immunization History Hx Tetanus Toxoid Vaccination: Yes (03/23/2013) Hx Influenza Vaccination: No Hx Pneumococcal Vaccination: No - Home Medications Home Medications: Ambulatory Orders Medication Instructions Recorded Famotidine [Pepcid] 20 mg PO BID #28 tab 04/13/18 - Allergies Allergies/Adverse Reactions: Allergies Allergy/AdvReac Type Severity Reaction Status Date / Time FISH Allergy RASH Verified 04/06/18 04:57 shellfish derived Allergy RASH Verified 04/06/18 04:57 Review of Systems ROS Statement: Except As Marked, All Systems Reviewed And Found Negative Constitutional: Negative for: Fever, Chills Cardiovascular: Negative for: Chest Pain Respiratory: Negative for: Cough, Shortness of Breath Gastrointestinal: Positive for: Nausea, Vomiting, Abdominal Pain Physical Exam - Reviewed Nursing Documentation Reviewed: Yes Vital Signs Reviewed: Yes - Physical Exam Appears: Positive for: Well, Non-toxic, No Acute Distress Head Exam: Positive for: ATRAUMATIC, NORMAL INSPECTION, NORMOCEPHALIC Skin: Positive for: Normal Color, Warm, DRY Eye Exam: Positive for: Normal appearance ENT: Positive for: Normal ENT Inspection Neck: Positive for: Normal, Painless ROM Cardiovascular/Chest: Positive for: Regular Rate, Rhythm Respiratory: Positive for: Normal Breath Sounds. Negative for: Decreased Breath Sounds, Accessory Muscle Use, Wheezing, Respiratory Distress Gastrointestinal/Abdominal: Positive for: Normal Exam, Soft. Negative for: Tenderness, Distended, Guarding, Rebound Back: Positive for: Normal Inspection Extremity: Positive for: Normal ROM Neurologic/Psych: Positive for: Alert, Oriented - ECG Pulse Ox Interpretation: Normal Disposition - Clinical Impression Clinical Impression: Gastritis - Patient ED Disposition Is Patient to be Admitted: No Counseled Patient/Family Regarding: Diagnosis, Need For Followup, Rx Given - Disposition Disposition: Routine/Home Disposition Time: 02:12 Condition: STABLE Prescriptions: Famotidine [Pepcid] 20 mg PO BID #28 tab Instructions: Gastritis (DC)
[2018-04-13] MEDS ORDERED: Alum-Mag Hydrox-Simethicone Susp (30 mL) PO STA (01:50)
[2018-04-13] MEDS ORDERED: Alum-Mag Hydrox-Simethicone Susp (30 mL) ONE (01:53)
[2018-04-13 02:36] VITALS: RESP 16; O2SAT 96
[2018-04-13 04:36] VITALS: BP 117/84; PULSE 73
== END 2018-04-13 04:50 | disposition home or self-care (01) ==
LOC: H.ER 01:24
DX: K29.70 Gastritis, unspecified, without bleeding (principal); F31.9 Bipolar disorder, unspecified; F41.9 Anxiety disorder, unspecified; J45.909 Unspecified asthma, uncomplicated

== ENCOUNTER 2018-06-22 15:32 | Emergency (ER) | payer MEDICAID ==
[2018-06-22 16:13] VITALS: BP 125/70; PULSE 96; RESP 15; TEMP 98.9; O2SAT 99
--- NOTE | 2018-06-22 17:04 | ED PDOC ---
Lower Extremity Pain/Injury Time Seen by Provider: 06/22/18 16:27 Chief Complaint (Nursing): Lower Extremity Problem/Injury Chief Complaint (Provider): Blister right foot History Per: Patient History/Exam Limitations: no limitations Onset/Duration Of Symptoms: Days Current Symptoms Are (Timing): Still Present Additional Complaint(s): 33 yo male presents for evaluation of right foot blisters. Pt states he works standing long hours. PT reports similar in the past and states he was seen by podiatry but never followed up. PT states he has not done anything for the pain. Pt has not tried inserts. Pt requesting gauze and a sandwich. Past Medical History Reviewed: Historical Data, Nursing Documentation, Vital Signs Vital Signs: Last Vital Signs Temp 98.9 F 06/22/18 16:11 Pulse 96 H 06/22/18 16:11 Resp 15 06/22/18 16:11 BP 125/70 06/22/18 16:11 Pulse Ox 99 06/22/18 16:11 - Medical History PMH: Anxiety, Asthma, Bipolar Disorder, Bronchitis, Depression, HTN Denies: Diabetes, Hepatitis, HIV, Kidney Stones, Chronic Kidney Disease, Seizures, Sexually Transmitted Disease - Family History Family History: States: Unknown Family Hx, Hypertension - Immunization History Hx Tetanus Toxoid Vaccination: Yes (03/23/2013) Hx Influenza Vaccination: No Hx Pneumococcal Vaccination: No - Home Medications Home Medications: Ambulatory Orders Medication Instructions Recorded No Known Home Med 04/13/18 - Allergies Allergies/Adverse Reactions: Allergies Allergy/AdvReac Type Severity Reaction Status Date / Time FISH Allergy RASH Verified 04/13/18 05:31 shellfish derived Allergy RASH Verified 04/13/18 05:31 Physical Exam - Reviewed Nursing Documentation Reviewed: Yes Vital Signs Reviewed: Yes - Physical Exam Appears: Positive for: Well, Non-toxic, No Acute Distress Head Exam: Positive for: ATRAUMATIC, NORMAL INSPECTION, NORMOCEPHALIC Skin: Positive for: Warm. Negative for: Normal Color (Open blister on the ball of the right foot and border of the right heel, no drainage, no surrouding erythema ) Eye Exam: Positive for: Normal appearance ENT: Positive for: Normal ENT Inspection Neck: Positive for: Normal Cardiovascular/Chest: Negative for: Bradycardia, Tachycardia Respiratory: Negative for: Accessory Muscle Use, Respiratory Distress Back: Positive for: Normal Inspection Extremity: Positive for: Normal ROM Neurologic/Psych: Positive for: Alert, Oriented, Gait. Negative for: Facial Droop - ECG O2 Sat by Pulse Oximetry: 99 Medical Decision Making Medical Decision Making: No sandwiches in ER. Pt gets aggitated in ER and states I am a "bitch" for not getting him a sandwich. Discussed f/u with podiatry. Disposition - Clinical Impression Clinical Impression: Blister, Callus - Patient ED Disposition Is Patient to be Admitted: No Counseled Patient/Family Regarding: Diagnosis, Need For Followup - Disposition Referrals: Podiatry Clinic [Outside] Disposition: Routine/Home Disposition Time: 17:02 Condition: GOOD Instructions: Corns and Calluses
== END 2018-06-22 17:15 | disposition home or self-care (01) ==
LOC: H.ER 15:32
DX: S90.821A Blister (nonthermal), right foot, initial encounter (principal); L84 Corns and callosities; Z86.59 Personal history of other mental and behavioral disorders; I10 Essential (primary) hypertension; J45.909 Unspecified asthma, uncomplicated

== ENCOUNTER 2018-07-12 18:55 | Emergency (ER) | payer MEDICAID ==
[2018-07-12 19:18] VITALS: RESP 18
[2018-07-12] MEDS ORDERED: Lidocaine/Epi 1% 1:100000 20 ML IJ STA (19:56)
[2018-07-12] MEDS ORDERED: Lidocaine 1% w Epi 1:100,000 Inj ONE (20:22)
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
[2018-07-12 21:12] VITALS: BP 117/71; PULSE 90; TEMP 98.5
[2018-07-13 00:05] VITALS: O2SAT 100
== END 2018-07-12 21:12 | disposition home or self-care (01) ==
LOC: H.ER 18:55
DX: S01.511A Laceration without foreign body of lip, initial encounter (principal); Y04.0XXA Assault by unarmed brawl or fight, initial encounter; Y92.89 Other specified places as the place of occurrence of the external cause

== ENCOUNTER 2018-07-28 18:30 | Emergency (ER) | payer MEDICAID ==
[2018-07-28 18:33] VITALS: BP 142/71; PULSE 74; RESP 16; TEMP 99.2; O2SAT 100
[2018-07-28] MEDS ORDERED: Albuterol-Ipratrop 3 mg / 0.5 (3 ml) UD INH STA (19:15)
--- NOTE | 2018-07-28 19:51 | ED PDOC ---
HPI: CCC, URI, Sore Throat Time Seen by Provider: 07/28/18 18:57 Chief Complaint (Nursing): Medical Clearance Chief Complaint (Provider): Medical Clearance History Per: Patient History/Exam Limitations: no limitations Associated Symptoms: Other (Chest tightness, depression and anxiety ). denies: Sputum Additional Complaint(s): 33 years old male with history of bronchitis, ADHD and depression, who has been in police custody since 9 am this morning, presents for evaluation of cough and depression. Patient reports because he was under AC when he was taken by police, he started to get very cold and have a non productive cough. He reports associated chest tightness and anxiety. PMD: non provided Past Medical History Reviewed: Historical Data, Nursing Documentation, Vital Signs Vital Signs: Last Vital Signs Temp 99.2 F 07/28/18 18:32 Pulse 74 07/28/18 18:32 Resp 16 07/28/18 18:32 BP 142/71 07/28/18 18:32 Pulse Ox 100 07/28/18 18:32 - Medical History PMH: Anxiety, Asthma, Bipolar Disorder, Bronchitis, Depression, HTN Denies: Diabetes, Hepatitis, HIV, Kidney Stones, Chronic Kidney Disease, Seizures, Sexually Transmitted Disease Other PMH: AD/HD - Surgical History Surgical History: No Surg Hx - Family History Family History: States: Unknown Family Hx, Hypertension - Social History Current smoker - smoking cessation education provided: Yes Alcohol: Social Drugs: Cannabis (Marijuana) - Immunization History Hx Tetanus Toxoid Vaccination: No Hx Influenza Vaccination: No Hx Pneumococcal Vaccination: No - Home Medications Home Medications: Ambulatory Orders Medication Instructions Recorded RX: No Known Home Med 07/02/18 - Allergies Allergies/Adverse Reactions: Allergies Allergy/AdvReac Type Severity Reaction Status Date / Time FISH Allergy RASH Verified 07/28/18 18:32 shellfish derived Allergy RASH Verified 07/28/18 18:32 Review of Systems ROS Statement: Except As Marked, All Systems Reviewed And Found Negative Cardiovascular: Positive for: Chest Pain (tightness) Respiratory: Positive for: Cough. Negative for: Sputum Psych: Positive for: Anxiety, Depression Physical Exam - Reviewed Nursing Documentation Reviewed: Yes - Physical Exam Appears: Positive for: Non-toxic, No Acute Distress Head Exam: Positive for: ATRAUMATIC, NORMOCEPHALIC Skin: Positive for: Warm, Dry Eye Exam: Positive for: EOMI, PERRL ENT: Negative for: Pharyngeal Erythema, Tonsillar Exudate Neck: Positive for: Painless ROM, Supple Cardiovascular/Chest: Positive for: Regular Rate, Rhythm. Negative for: Murmur Respiratory: Positive for: Normal Breath Sounds (Clear bilaterally), Wheezing (Rare occasional and expiratory). Negative for: Accessory Muscle Use Gastrointestinal/Abdominal: Positive for: Soft. Negative for: Tenderness Back: Positive for: Normal Inspection. Negative for: Decreased ROM Extremity: Positive for: Normal ROM. Negative for: Deformity Lymphatic: Negative for: Adenopathy Neurologic/Psych: Positive for: Alert, Oriented (x3). Negative for: Motor/Sensory Deficits - ECG O2 Sat by Pulse Oximetry: 100 (RA) Pulse Ox Interpretation: Normal Medical Decision Making Medical Decision Making: Time: 1915 Initial Impression: bronchospasm spasm, adjustment disorder. Initial Plan: -- Crisis evaluation --Chest X-Ray --Albuterol 3 ml INH Rare occasional and expiratory Scribe Attestation: Documented by Enid Poon, acting as a scribe for Jailyn Rose MD. Provider Scribe Attestation: All medical record entries made by the Scribe were at my direction and personally dictated by me. I have reviewed the chart and agree that the record a ccurately reflects my personal performance of the history, physical exam, medical decision making, and the department course for this patient. I have also personally directed, reviewed, and agree with the discharge instructions and disposition. Disposition - Clinical Impression Clinical Impression: Adjustment disorder - Disposition Disposition: Transfer of Care Disposition Time: 23:00 Condition: STABLE Additional Instructions: Patient is medically and psychiatrically cleared for discharge. Instructions: Adjustment Disorder Forms: [employer] (Turkish)
[2018-07-28] MEDS ORDERED: Albuterol-Ipratrop 3 mg / 0.5 (3 ml) UD ONE (21:09)
--- NOTE | 2018-07-29 02:39 | ED PDOC ---
- ECG O2 Sat by Pulse Oximetry: 100 (RA) Pulse Ox Interpretation: Normal Medical Decision Making Medical Decision Makin Endorsed to me by Dr. Rose pending crisis eval 0000 No longer wheezing Sleeping comfortably 230 Seen by family service caseworker Cleared for discharge with diagnosis of Adjustment Disorder by Dr. Trotter Disposition - Clinical Impression Clinical Impression: Adjustment disorder - POA Present On Arrival: None - Disposition Referrals: [facility] [Outside] Disposition: Discharged/Transfer to Law Enforcement Disposition Time: 02:38 Condition: STABLE Additional Instructions: Patient is medically and psychiatrically cleared for discharge. Instructions: Adjustment Disorder Forms: [employer] (Maltese)
--- NOTE | 2018-07-29 12:36 | RAD ---
Date of service: 07/28/2018 HISTORY: cough COMPARISON: 04/20/2018 FINDINGS: LUNGS: No active pulmonary disease. PLEURA: No significant pleural effusion identified, no pneumothorax apparent. CARDIOVASCULAR: Normal. OSSEOUS STRUCTURES: No significant abnormalities. VISUALIZED UPPER ABDOMEN: Normal. OTHER FINDINGS: None. IMPRESSION: No active disease. No interval pathology noted.
== END 2018-07-29 02:50 ==
LOC: H.ER 18:30
DX: R05 Cough (principal); J40 Bronchitis, not specified as acute or chronic; F43.22 Adjustment disorder with anxiety

== ENCOUNTER 2018-08-10 23:14 | Emergency (ER) | payer MEDICAID ==
[2018-08-10 23:38] VITALS: O2SAT 98
[2018-08-11] MEDS ORDERED: DiphenhydrAMINE 50 mg/ml Inj IM STA (00:07)
--- NOTE | 2018-08-11 04:02 | ED PDOC ---
HPI: Psych/Substance Abuse Time Seen by Provider: 08/10/18 23:50 Chief Complaint (Nursing): Psychiatric Evaluation Chief Complaint (Provider): EDP Additional Complaint(s): 33 y/o male here for evaluation of aggressive behavior. Patient was sleeping in the bathroom in the waiting room; became aggressive towards security and staff when asked to come out. Police called, escorted patient into exam room. Once police attempted to leave, patient out of exam room threatening security. Police again called back to bedside. HPI limited due to patient's current state of agitation. Past Medical History Reviewed: Historical Data, Nursing Documentation, Vital Signs Vital Signs: Last Vital Signs Temp 98.2 F 08/10/18 23:14 Pulse 82 08/10/18 23:14 Resp 18 08/10/18 23:14 BP 130/86 08/10/18 23:14 Pulse Ox 98 08/10/18 23:14 - Medical History PMH: Anxiety, Asthma, Bipolar Disorder, Bronchitis, Depression, HTN Denies: Diabetes, Hepatitis, HIV, Kidney Stones, Chronic Kidney Disease, Seizures, Sexually Transmitted Disease - Family History Family History: States: Unknown Family Hx, Hypertension - Immunization History Hx Tetanus Toxoid Vaccination: No Hx Influenza Vaccination: No Hx Pneumococcal Vaccination: No - Home Medications Home Medications: Ambulatory Orders Medication Instructions Recorded No Known Home Med 07/02/18 - Allergies Allergies/Adverse Reactions: Allergies Allergy/AdvReac Type Severity Reaction Status Date / Time FISH Allergy RASH Verified 07/28/18 18:32 shellfish derived Allergy RASH Verified 07/28/18 18:32 Review of Systems ROS Statement: Except As Marked, All Systems Reviewed And Found Negative Physical Exam - Reviewed Nursing Documentation Reviewed: Yes Vital Signs Reviewed: Yes - Physical Exam Appears: Positive for: Well, Non-toxic, In Acute Distress (yelling, cursing) Head Exam: Positive for: ATRAUMATIC, NORMAL INSPECTION, NORMOCEPHALIC Skin: Positive for: Normal Color Cardiovascular/Chest: Positive for: Regular Rate, Rhythm Respiratory: Positive for: Normal Breath Sounds Extremity: Positive for: Normal ROM Neurologic/Psych: Positive for: Alert, Oriented (x3) - Laboratory Results Result Diagrams: 08/11/18 04:40 - ECG O2 Sat by Pulse Oximetry: 98 - Progress ED Course And Treament: Security, PD at bedside; patient still unwilling to comply with alternative measures offered. Patient restrained and medicated for acute agitation/safety labs, urine, crisis eval 1:30 Patient sleeping; no distress 3:00 Patient sleeping; no distress 4:30 Patient sleeping; no distress Disposition - Clinical Impression Clinical Impression: Aggressive behavior - Disposition Disposition Time: 06:00 Condition: STABLE Forms: [facility] (Persian) Patient Signed Over To: John Sanchez Handoff Comments: pending crisis eval
[2018-08-11 04:57] LABS: BASO % 0.3 % (0.0-2.0); EOS # 0.3 K/uL (0.0-0.7); EOS % 2.4 % (0.0-4.0); HEMOGLOBIN 14.8 g/dL (12.0-18.0); LYMPH # 2.4 K/uL (1.0-4.3); LYMPH % 21.3 % (20.0-40.0); MEAN CELL VOLUME 90.5 fl (80.0-94.0); MEAN CORPUSCULAR HEMOGLOBIN 30.9 pg (27.0-31.0); MEAN CORPUSCULAR HGB CONC 34.2 g/dL (33.0-37.0); MEAN PLATELET VOLUME 8.4 fl (7.2-11.7); MONO % 8.8 % (0.0-10.0); NEUT # 7.6 K/uL (1.8-7.0); NEUT % 67.2 % (50.0-75.0); RBC 4.78 Mil/uL (4.40-5.90); RED CELL DISTRIBUTION WIDTH 13.7 % (11.5-14.5); WHITE BLOOD COUNT 11.4 K/uL (4.8-10.8)
[2018-08-11 05:55] LABS: ALB/GLOB RATIO 1.1 (1.0-2.1); ALBUMIN 4.2 g/dL (3.5-5.0); ALT/SGPT 32 U/L (21-72); AST/SGOT 44 U/L (17-59); BLOOD UREA NITROGEN 18 mg/dl (9-20); CALCIUM 9.4 mg/dL (8.4-10.2); GFR NON-AFRICAN AMERICAN > 60
--- NOTE | 2018-08-11 07:38 | ED PDOC ---
- Laboratory Results Result Diagrams: 08/11/18 04:40 08/11/18 05:36 - ECG O2 Sat by Pulse Oximetry: 98 - Progress ED Course And Treament: 700: Took over care from Dr. Sanchez. Pt. aggressive and hearing voices. Lesley quintero and main. Fu with crisis. 1109: Stable. Crisis saw pt. Does not meet criteria for admit. Fu outpt. Pt. aaox3. Tolerated PO. Disposition - Clinical Impression Clinical Impression: Aggressive behavior - POA Present On Arrival: None - Disposition Referrals: [facility] [Outside] - 08/13/18 Disposition: Routine/Home Disposition Time: 11:10 Condition: STABLE Additional Instructions: Return if not better in 3 days. Instructions: Polysubstance Abuse
[2018-08-11 12:05] VITALS: BP 110/70
[2018-08-11 12:07] VITALS: PULSE 70; RESP 20; TEMP 97.8
== END 2018-08-11 12:06 | disposition home or self-care (01) ==
LOC: H.ER 23:14
DX: F91.8 Other conduct disorders (principal); F31.9 Bipolar disorder, unspecified
CPT/HCPCS: 80053; 80320; 85025; 96372; 99284; J1200; J1630; J2060

== ENCOUNTER 2018-08-23 03:52 | Emergency (ER) | payer MEDICAID ==
[2018-08-23] MEDS ORDERED: Sodium Chloride 3% for Inhalation 4 ML VIAL.NEB IH STA (04:31)
--- NOTE | 2018-08-23 04:37 | ED PDOC ---
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 States he's been using crystal meth for the past 3 days. Reports feeling anxious and SOB and itchy. Denies trauma, chest pain, palpitations. Past Medical History Reviewed: Historical Data, Nursing Documentation, Vital Signs Vital Signs: Last Vital Signs Temp 98.6 F 08/23/18 04:07 Pulse 90 08/23/18 04:07 Resp 16 08/23/18 04:07 BP 138/86 08/23/18 04:07 Pulse Ox 99 08/23/18 04:07 - Medical History PMH: Anxiety, Asthma, Bipolar Disorder, Bronchitis, Depression, HTN Denies: Diabetes, Hepatitis, HIV, Kidney Stones, Chronic Kidney Disease, Seizures, Sexually Transmitted Disease - Family History Family History: States: Hypertension - Immunization History Hx Tetanus Toxoid Vaccination: No Hx Influenza Vaccination: No Hx Pneumococcal Vaccination: No - Home Medications Home Medications: Ambulatory Orders Medication Instructions Recorded RX: No Known Home Med 07/02/18 - Allergies Allergies/Adverse Reactions: Allergies Allergy/AdvReac Type Severity Reaction Status Date / Time FISH Allergy RASH Verified 07/28/18 18:32 shellfish derived Allergy RASH Verified 07/28/18 18:32 Review of Systems ROS Statement: Except As Marked, All Systems Reviewed And Found Negative Respiratory: Positive for: Shortness of Breath Physical Exam - Reviewed Nursing Documentation Reviewed: Yes Vital Signs Reviewed: Yes - Physical Exam Appears: Positive for: Well, Non-toxic, No Acute Distress Head Exam: Positive for: ATRAUMATIC, NORMAL INSPECTION, NORMOCEPHALIC Skin: Positive for: Normal Color, Warm. Negative for: Rash Eye Exam: Positive for: EOMI, Normal appearance, PERRL ENT: Positive for: Normal ENT Inspection Neck: Positive for: Normal, Painless ROM Cardiovascular/Chest: Positive for: Regular Rate, Rhythm Respiratory: Positive for: CNT, Normal Breath Sounds Gastrointestinal/Abdominal: Positive for: Normal Exam, Soft. Negative for: Tenderness Back: Positive for: Normal Inspection Extremity: Positive for: Normal ROM Neurologic/Psych: Positive for: Alert, Oriented, Gait (steady, unassisted). Negative for: Aphasia, Facial Droop - ECG ECG: Positive for: Interpreted By Me ECG Rhythm: Positive for: Sinus Rhythm. Negative for: ST/T Changes Rate: 86 O2 Sat by Pulse Oximetry: 99 Disposition - Clinical Impression Clinical Impression: Drug abuse - Patient ED Disposition Is Patient to be Admitted: No - Disposition Referrals: [facility] [Outside] Disposition: Routine/Home Disposition Time: 04:58 Condition: IMPROVED Additional Instructions: BERRY SIEGEL, thank you for letting us take care of you today. Your provider was John Sanchez MD and you were treated for POSS SUBSTANCE ABUSE. The emergency medical care you received today was directed at your acute symptoms. If you were prescribed any medication, please fill it and take as directed. It may take several days for your symptoms to resolve. Return to the Emergency Department if your symptoms worsen, do not improve, or if you have any other problems. Please contact your doctor or call one of the physicians/clinics you have been referred to that are listed on the Patient Visit Information form that is included in your discharge packet. Bring any paperwork you were given at discharge with you along with any medications you are taking to your follow up visit. Our treatment cannot replace ongoing medical care by a primary care provider outside of the emergency department. Thank you for allowing the [facility] team to be part of your care today. If you had an X-Ray or CT scan: A Radiologist will review the ED reading if any change in treatment is needed we will contact you. If you had a blood, urine, or wound culture: It will take several days for the results, if any change in treatment is needed we will contact you. If you had an STI test: It will take 48 hours for the results. Please call after 1 week if you have not heard back. Instructions: Drug Abuse and Drug Addiction (DC), Drug Abuse Treatment Forms: [employer] (Irish)
[2018-08-23 07:06] VITALS: BP 115/68; RESP 18; TEMP 98.5
--- NOTE | 2018-08-23 13:44 | CARD ---
APPROVED REPORT Date of service: 08/23/2018 EKG Measurement Heart [id number] <Conclusion> Normal sinus rhythm Normal ECG
[2018-08-24 02:17] VITALS: PULSE 86; O2SAT 99
== END 2018-08-23 07:22 | disposition home or self-care (01) ==
LOC: H.ER 03:52
DX: F19.10 Other psychoactive substance abuse, uncomplicated (principal); F41.9 Anxiety disorder, unspecified; F31.9 Bipolar disorder, unspecified; I10 Essential (primary) hypertension

== ENCOUNTER 2018-08-29 04:43 | Emergency (ER) | payer MEDICAID ==
[2018-08-29 05:29] VITALS: BP 148/78; PULSE 93; RESP 16; TEMP 98; O2SAT 99
--- NOTE | 2018-08-29 08:06 | ED PDOC ---
HPI: Psych/Substance Abuse Time Seen by Provider: 08/29/18 04:57 Chief Complaint (Nursing): Substance Abuse Chief Complaint (Provider): Substance Abuse and EtOH intoxication History Per: Patient History/Exam Limitations: no limitations Onset/Duration Of Symptoms: Hrs Current Symptoms Are (Timing): Still Present Suicide/Self Injury Attempted (Context): None Modifying Factor(s): Alcohol Additional Complaint(s): 33 y/o male with a PMHx of Anxiety, Asthma, Bipolar Disorder, Bronchitis, Depression, Gastritis and HTN brought to the ED for evaluation of substance abuse and EtOH intoxication. Patient states he was drinking beer and smoking PCP approximately one hour prior to arrival. Patient denies fall, shortness of br eath and chest pain. No weakness, fall, injury, headaches. Not suicidal or homicidal. PMD: none Past Medical History Reviewed: Historical Data, Nursing Documentation, Vital Signs Vital Signs: Last Vital Signs Temp 98.0 F 08/29/18 05:27 Pulse 93 H 08/29/18 05:27 Resp 16 08/29/18 05:27 BP 148/78 08/29/18 05:27 Pulse Ox 99 08/29/18 05:27 - Medical History PMH: Anxiety, Asthma, Bipolar Disorder, Bronchitis, Depression, Gastritis, HTN Denies: Diabetes, Hepatitis, HIV, Kidney Stones, Chronic Kidney Disease, Seizures, Sexually Transmitted Disease - Surgical History Surgical History: No Surg Hx - Family History Family History: States: Hypertension - Social History Alcohol: > 2 Drinks/Day Drugs: Other (PCP) - Immunization History Hx Tetanus Toxoid Vaccination: No Hx Influenza Vaccination: No Hx Pneumococcal Vaccination: No - Home Medications Home Medications: Ambulatory Orders Medication Instructions Recorded No Known Home Med 07/02/18 - Allergies Allergies/Adverse Reactions: Allergies Allergy/AdvReac Type Severity Reaction Status Date / Time FISH Allergy RASH Verified 07/28/18 18:32 shellfish derived Allergy RASH Verified 07/28/18 18:32 Review of Systems ROS Statement: Except As Marked, All Systems Reviewed And Found Negative Psych: Positive for: Other (Substance Abuse and EtOH intoxication) Physical Exam - Reviewed Nursing Documentation Reviewed: Yes Vital Signs Reviewed: Yes - Physical Exam Appears: Positive for: No Acute Distress Head Exam: Positive for: ATRAUMATIC Skin: Positive for: Normal Color Eye Exam: Positive for: Normal appearance Neck: Positive for: Normal Cardiovascular/Chest: Positive for: Regular Rate, Rhythm. Negative for: Murmur Respiratory: Positive for: Normal Breath Sounds. Negative for: Respiratory Distress Gastrointestinal/Abdominal: Positive for: Normal Exam, Bowel Sounds, Soft. Negative for: Tenderness Back: Positive for: Normal Inspection. Negative for: L CVA Tenderness, R CVA Tenderness Extremity: Positive for: Normal ROM. Negative for: Tenderness, Pedal Edema, Deformity Neurologic/Psych: Positive for: Alert, electric well logging operator II-XII, Oriented. Negative for: Motor/Sensory Deficits, Aphasia, Facial Droop - ECG O2 Sat by Pulse Oximetry: 99 (RA) Pulse Ox Interpretation: Normal - Progress ED Course And Treament: 2030: Stable. AAOx3. Demanding food. Has capacity to make decisions. Ambulated with no issues. Medical Decision Making Medical Decision Making: Time: 724 Plan: -- Alcohol Serum -- POC Scribe Attestation: Documented by Oswaldo Cr, acting as a scribe for Bobby Donato MD. Provider Scribe Attestation: All medical record entries made by the Scribe were at my direction and personally dictated by me. I have reviewed the chart and agree that the record accurately reflects my personal performance of the history, physical exam, medic al decision making, and the department course for this patient. I have also personally directed, reviewed, and agree with the discharge instructions and disposition. Disposition - Clinical Impression Clinical Impression: Drug abuse - Patient ED Disposition Is Patient to be Admitted: No Counseled Patient/Family Regarding: Diagnosis, Need For Followup - Disposition Referrals: [facility] [Outside] Disposition: Routine/Home Disposition Time: 08:32 Condition: STABLE Instructions: Drug Abuse and Drug Addiction (DC)
== END 2018-08-29 08:41 | disposition home or self-care (01) ==
LOC: H.ER 04:43
DX: J45.909 Unspecified asthma, uncomplicated (principal); F19.10 Other psychoactive substance abuse, uncomplicated; Z86.59 Personal history of other mental and behavioral disorders; I10 Essential (primary) hypertension

== ENCOUNTER 2018-08-29 23:07 | Emergency (ER) | payer MEDICAID ==
[2018-08-29 23:20] VITALS: TEMP 98.4
--- NOTE | 2018-08-30 03:40 | ED PDOC ---
HPI: Psych/Substance Abuse Time Seen by Provider: 08/30/18 00:04 Chief Complaint (Nursing): Alcohol Ingestion Chief Complaint (Provider): Alcohol Ingestion History Per: Patient History/Exam Limitations: no limitations Modifying Factor(s): Alcohol Additional Complaint(s): Patient,a 51 y/o male, is well know to provider and has been to this ED for multiple visits who was brought in today for alcohol intoxication. Patient states that he drank 2 pints and vomited subsequently just prior to arrival. On arrival to the ED patient is asking to be allowed to sleep. Past Medical History Reviewed: Historical Data, Nursing Documentation, Vital Signs Vital Signs: Last Vital Signs Temp 98.4 F 08/29/18 23:19 Pulse 80 08/29/18 23:19 Resp 16 08/29/18 23:19 BP 123/62 08/29/18 23:19 Pulse Ox 96 08/29/18 23:19 - Medical History PMH: Anxiety, Asthma, Bipolar Disorder, Bronchitis, Depression, Gastritis, HTN Denies: Diabetes, Hepatitis, HIV, Kidney Stones, Chronic Kidney Disease, Seizures, Sexually Transmitted Disease Other PMH: Substance Abuse - Surgical History Surgical History: No Surg Hx - Family History Family History: States: Unknown Family Hx, Hypertension - Living Arrangements Living Arrangements: Other (Homeless) - Immunization History Hx Tetanus Toxoid Vaccination: No Hx Influenza Vaccination: No Hx Pneumococcal Vaccination: No - Home Medications Home Medications: Ambulatory Orders Medication Instructions Recorded RX: No Known Home Med 07/02/18 - Allergies Allergies/Adverse Reactions: Allergies Allergy/AdvReac Type Severity Reaction Status Date / Time FISH Allergy RASH Verified 08/29/18 23:19 shellfish derived Allergy RASH Verified 08/29/18 23:19 Review of Systems ROS Statement: Except As Marked, All Systems Reviewed And Found Negative Gastrointestinal: Positive for: Vomiting Physical Exam - Reviewed Nursing Documentation Reviewed: Yes Vital Signs Reviewed: Yes - Physical Exam Appears: Positive for: Well, Non-toxic, No Acute Distress Head Exam: Positive for: ATRAUMATIC, NORMOCEPHALIC Skin: Positive for: Normal Color, Warm, DRY Eye Exam: Positive for: EOMI, Normal appearance, PERRL Neck: Positive for: Normal, Painless ROM, Supple Cardiovascular/Chest: Positive for: Regular Rate, Rhythm. Negative for: Murmur Respiratory: Positive for: Normal Breath Sounds. Negative for: Respiratory Distress Gastrointestinal/Abdominal: Positive for: Normal Exam, Soft. Negative for: Tenderness Extremity: Positive for: Normal ROM. Negative for: Pedal Edema, Deformity Neurologic/Psych: Positive for: Alert, Oriented. Negative for: Motor/Sensory Deficits - ECG O2 Sat by Pulse Oximetry: 96 (RA) Pulse Ox Interpretation: Normal Medical Decision Making Medical Decision Making: Time: 00:05 Impression: 33 y/o male with substance abuse/alcohol abuse. Patient is stable for discharge. Initial Plan: Alcohol serum Drug screen Scribe Attestation: Documented by Douglas David acting as a scribe for Cammie Chaves PA-C. Provider Scribe Attestation: All medical record entries made by the Scribe were at my direction and personally dictated by me. I have reviewed the chart and agree that the record accurately reflects my personal performance of the history, physical exam, medical decision making, and the department course for this patient. I have also personally directed, reviewed, and agree with the discharge instructions and disposition. Disposition - Clinical Impression Clinical Impression: Polysubstance abuse - Disposition Disposition: Routine/Home Disposition Time: 03:00 Condition: STABLE Instructions: Drug Abuse Treatment Forms: [employer] (Lebanese)
[2018-08-30 06:58] VITALS: BP 104/57; PULSE 69; RESP 18; O2SAT 98
== END 2018-08-30 06:57 | disposition home or self-care (01) ==
LOC: H.ER 23:07
DX: F19.10 Other psychoactive substance abuse, uncomplicated (principal); Z86.59 Personal history of other mental and behavioral disorders; I10 Essential (primary) hypertension; J45.909 Unspecified asthma, uncomplicated

== ENCOUNTER 2018-08-30 23:21 | Emergency (ER) | payer MEDICAID ==
[2018-08-30 23:24] VITALS: BP 154/61; PULSE 89; RESP 18; TEMP 98.8; O2SAT 99
--- NOTE | 2018-08-31 00:24 | ED PDOC ---
HPI: Psych/Substance Abuse Time Seen by Provider: 08/30/18 23:35 Chief Complaint (Nursing): Substance Abuse Chief Complaint (Provider): Substance abuse History Per: EMS Modifying Factor(s): Alcohol, Marijuana, Other (PCP) Additional Complaint(s): 33yo male, brought to ER by [place] [employer] and EMS for evaluation due to substance abuse. Patient admits to PCP use and states he drank 2 pints of Bacardi at 7:30PM. Patient reports he felt some chest pain which was sharp and midsternal; he now feels the chest pain has improved and is requesting a meal tray upon arrival to ED. Patient has a history of frequent visits and was seen here yesterday for similar complaints. Patient denies any shortness of breath, cough, nausea, vomiting, headache, dizziness, vision changes, weakness or numbness. PMD: Alexandra Martinez Past Medical History Reviewed: Historical Data, Nursing Documentation, Vital Signs Vital Signs: Last Vital Signs Temp 98.8 F 08/30/18 23:22 Pulse 89 08/30/18 23:22 Resp 18 08/30/18 23:22 BP 154/61 H 08/30/18 23:22 Pulse Ox 99 08/30/18 23:22 - Medical History PMH: Anxiety, Asthma, Bipolar Disorder, Bronchitis, Depression, Gastritis, HTN - Surgical History Surgical History: No Surg Hx - Family History Family History: States: Unknown Family Hx - Social History Alcohol: > 2 Drinks/Day Drugs: Other (PCP) - Home Medications Home Medications: Ambulatory Orders Medication Instructions Recorded RX: No Known Home Med 07/02/18 - Allergies Allergies/Adverse Reactions: Allergies Allergy/AdvReac Type Severity Reaction Status Date / Time FISH Allergy RASH Verified 08/31/18 01:44 shellfish derived Allergy RASH Verified 08/31/18 01:44 Review of Systems ROS Statement: Except As Marked, All Systems Reviewed And Found Negative Eyes: Negative for: Vision Change Cardiovascular: Negative for: Chest Pain Respiratory: Negative for: Shortness of Breath Gastrointestinal: Negative for: Nausea, Vomiting Neurological: Negative for: Headache Psych: Negative for: Suicidal ideation Physical Exam - Reviewed Nursing Documentation Reviewed: Yes Vital Signs Reviewed: Yes - Physical Exam Comments: GENERAL APPEARANCE: Patient is awake, alert, oriented x 3, in no acute distress. Resting comfortably. SKIN: Warm, dry; (-) cyanosis ENMT: Mucous membranes moist. Airway patent: (-) stridor. NECK: Supple, FROM HEART AND CARDIOVASCULAR: (-) irregularity CHEST AND RESPIRATORY: (-) rales, (-) rhonchi, (-) wheezes; breath sounds equal. Respirations even and nonlabored, speaking in full sentences. ABDOMEN: Soft, (-) distention, (-) tenderness, (-) guarding. NEURO AND PSYCH: Mental status as above. Pupils pinpoint; EOMI; (-) facial asymmetry. Gait: steady. Speech: clear. - ECG O2 Sat by Pulse Oximetry: 99 (RA) Pulse Ox Interpretation: Normal Medical Decision Making Medical Decision Making: Impression: PCP and alcohol abuse Plan: -- EKG -- UDS -- Alcohol serum 0025 EKG: NSR @ 88bpm (-) ST elevation, QTc 428 0035 Gait steady in ED without assistance. Patient requesting discharge because he is hungry. On exam, patient remains AAOx3, in no acute distress. Lungs clear to auscultation, cardiac RRR, repeat neuro exam shows no focal findings. VSS, stable for discharge. Lab/Diagnostic results d/w the patient in great detail. Diagnosis of PCP and alcohol abuse d/w the patient. Based on history, exam and diagnostic results, plan will be for outpatient follow up. Patient instructed to follow-up with pmd / referral provided / the clinic in 1- 2 days without fail. Return to the emergency room at any time for any new or worsening symptoms. Patient states he fully agrees with and understands discharge instructions. States that he agrees with the plan and disposition. Verbalized and repeated discharge instructions and plan. I have given the patient opportunity to ask any additional questions. Scribe Attestation: Documented by Susie Tillman, acting as a scribe for RAJESH Gross. Provider Scribe Attestation: All medical record entries made by the Scribe were at my direction and personally dictated by me. I have reviewed the chart and agree that the record accurately reflects my personal performance of the history, physical exam, medical decision making, and the department course for this patient. I have also personally directed, reviewed, and agree with the discharge instructions and disposition. Disposition - Clinical Impression Clinical Impression: PCP (phencyclidine) abuse, Alcohol ingestion, Polysubstance abuse - Patient ED Disposition Is Patient to be Admitted: No Counseled Patient/Family Regarding: Studies Performed, Diagnosis, Need For Followup - Disposition Referrals: [facility] [Outside] Disposition: Routine/Home Disposition Time: 00:35 Condition: STABLE Additional Instructions: The emergency medical care you received today was directed towards the acute presenting symptoms. If you were prescribed any medication, please fill it and give as directed. It may take several days for your symptoms to resolve. Return to the Emergency Department at any time if symptoms worsen, do not improve, or if any other problems arise. Please contact your doctor in 2 days for re-evaluation and follow up / or call one of the physicians/clinics you have been referred to that are listed on the Patient Visit Information form that is included in your discharge packet. Bring any paperwork you were given at discharge with you along with any medications to your follow up visit. Our treatment cannot replace ongoing medical care by a primary care provider (PCP) outside of the emergency department. Instructions: Drug Abuse and Drug Addiction (DC), Effects of Alcohol on Your Health, Drug Abuse Treatment, Polysubstance Abuse Forms: [employer] (Irish) Print Language: WOLOF - POA Present On Arrival: None
--- NOTE | 2018-08-31 06:36 | CARD ---
APPROVED REPORT Date of service: 08/30/2018 EKG Measurement Heart [id number] <Conclusion> Normal sinus rhythm with sinus arrhythmia Normal ECG
== END 2018-08-31 00:50 | disposition home or self-care (01) ==
LOC: H.ER 23:21
DX: F10.10 Alcohol abuse, uncomplicated (principal); F19.10 Other psychoactive substance abuse, uncomplicated; F31.9 Bipolar disorder, unspecified; F41.9 Anxiety disorder, unspecified; I10 Essential (primary) hypertension

== ENCOUNTER 2018-09-10 01:57 | Emergency (ER) | payer MEDICAID ==
[2018-09-10 02:00] VITALS: BMI 21.5
[2018-09-10 02:21] VITALS: BP 149/82; PULSE 91; RESP 18; TEMP 98.3; O2SAT 97
[2018-09-10] MEDS ORDERED: Sodium Chloride 0.9% 1,000 ML IV STA (02:36)
[2018-09-10 03:07] LABS: BASO # 0.1 K/uL (0.0-0.2); BASO % 0.5 % (0.0-2.0); EOS # 0.1 K/uL (0.0-0.7); EOS % 0.6 % (0.0-4.0); HEMOGLOBIN 13.7 g/dL (12.0-18.0); LYMPH # 1.3 K/uL (1.0-4.3); LYMPH % 10.2 % (20.0-40.0); MEAN CELL VOLUME 92.1 fl (80.0-94.0); MEAN CORPUSCULAR HGB CONC 32.6 g/dL (33.0-37.0); MONO # 0.7 K/uL (0.0-0.8); MONO % 5.1 % (0.0-10.0); NEUT # 10.6 K/uL (1.8-7.0); NEUT % 83.6 % (50.0-75.0); NRBC % 0.1 % (0.0-0.0); RBC 4.57 Mil/uL (4.40-5.90); RED CELL DISTRIBUTION WIDTH 13.4 % (11.5-14.5); WHITE BLOOD COUNT 12.7 K/uL (4.8-10.8)
[2018-09-10 03:23] LABS: ALB/GLOB RATIO 1.2 (1.0-2.1); ALBUMIN 4.2 g/dL (3.5-5.0); ALT/SGPT 33 U/L (21-72); AST/SGOT 25 U/L (17-59); BLOOD UREA NITROGEN 20 mg/dl (9-20); CALCIUM 9.1 mg/dL (8.4-10.2); GFR NON-AFRICAN AMERICAN > 60; LIPASE 134 U/L (23-300)
--- NOTE | 2018-09-10 03:28 | ED PDOC ---
HPI: Abdomen Time Seen by Provider: 09/10/18 02:25 Chief Complaint (Nursing): GI Problem Chief Complaint (Provider): GI Problem History/Exam Limitations: no limitations Location Of Pain/Discomfort: Epigastric Associated Symptoms: Nausea, Vomiting Additional Complaint(s): Arthur Siegel is a 33 year old male with a past medical history of HTN, who presents to the emergency department complaining of nausea, vomiting, epigastric abdominal pain and alcohol intoxication. Patient states he had two pints of sujey earlier this evening and started to vomit. He has a history of alcohol and substance abuse. Patient has no fevers. PMD: No provider Past Medical History Reviewed: Historical Data, Nursing Documentation, Vital Signs Vital Signs: Last Vital Signs Temp 98.3 F 09/10/18 02:18 Pulse 91 H 09/10/18 02:18 Resp 18 09/10/18 02:18 BP 149/82 09/10/18 02:18 Pulse Ox 97 09/10/18 02:18 - Medical History PMH: Anxiety, Asthma, Bipolar Disorder, Bronchitis, Depression, Gastritis, HTN Denies: Diabetes, Hepatitis, HIV, Kidney Stones, Chronic Kidney Disease, Seizures, Sexually Transmitted Disease - Surgical History Surgical History: No Surg Hx - Family History Family History: States: Unknown Family Hx, Hypertension - Immunization History Hx Tetanus Toxoid Vaccination: No Hx Influenza Vaccination: No Hx Pneumococcal Vaccination: No - Home Medications Home Medications: Ambulatory Orders Medication Instructions Recorded No Known Home Med 07/02/18 - Allergies Allergies/Adverse Reactions: Allergies Allergy/AdvReac Type Severity Reaction Status Date / Time FISH Allergy RASH Verified 08/31/18 01:44 shellfish derived Allergy RASH Verified 08/31/18 01:44 Review of Systems ROS Statement: Except As Marked, All Systems Reviewed And Found Negative Constitutional: Negative for: Fever Gastrointestinal: Positive for: Nausea, Vomiting, Abdominal Pain Physical Exam - Reviewed Nursing Documentation Reviewed: Yes Vital Signs Reviewed: Yes - Physical Exam Appears: Positive for: Non-toxic, Uncomfortable Head Exam: Positive for: ATRAUMATIC, NORMOCEPHALIC Skin: Positive for: Normal Color, Warm, Dry Eye Exam: Positive for: Normal appearance, EOMI, PERRL Neck: Positive for: Normal, Painless ROM, Supple Cardiovascular/Chest: Positive for: Regular Rate, Rhythm. Negative for: Murmur Respiratory: Positive for: Normal Breath Sounds. Negative for: Respiratory Distress Gastrointestinal/Abdominal: Positive for: Tenderness (mild epigastric tenderness) Back: Positive for: Normal Inspection. Negative for: L CVA Tenderness, R CVA Tenderness, Vertebral Tenderness Extremity: Positive for: Normal ROM. Negative for: Pedal Edema, Deformity Neurologic/Psych: Positive for: Alert, Oriented (x3), Gait (unsteady), Other (slurred speech) - Laboratory Results Result Diagrams: 09/10/18 03:02 09/10/18 03:02 - ECG O2 Sat by Pulse Oximetry: 97 (RA) Pulse Ox Interpretation: Normal - Progress Re-evaluation Time: 05:42 Condition: Re-examined, Improved Medical Decision Making Medical Decision Making: Initial Time: 02:35 Initial Impression: Alcohol intoxication with vomiting and epigastric pain. Differential diagnosis includes but not limited to alcohol intoxication, acute gastritis, pancreatitis, and possible substance abuse other than alcohol. --Alcohol Serum --CMP --Lipase --Urine drug screen --Saline Lock --Sodum Chloride 1,000 ml --Zofran inj 4 mg IVP --CBC with differential --Clinical sobriety Scribe Attestation: Documented by Thom Corbett, acting as a scribe for Forrest Spears MD. Provider Scribe Attestation: All medical record entries made by the Scribe were at my direction and personally dictated by me. I have reviewed the chart and agree that the record accurately reflects my personal performance of the history, physical exam, medical decision making, and the department course for this patient. I have also personally directed, reviewed, and agree with the discharge instructions and disposition. Disposition - Clinical Impression Clinical Impression: Substance abuse, Abdominal pain - Patient ED Disposition Is Patient to be Admitted: No Doctor Will See Patient In The: Office Counseled Patient/Family Regarding: Studies Performed, Diagnosis, Need For Followup - Disposition Referrals: [facility] [Outside] Disposition: Routine/Home Disposition Time: 05:42 Condition: GOOD Additional Instructions: ARTHUR SIEGEL, thank you for letting us take care of you today. Your provider was Forrest Spears MD and you were treated for ABDOMINAL PAIN,VOMITING. The emergency medical care you received today was directed at your acute symptoms. If you were prescribed any medication, please fill it and take as directed. It may take several days for your symptoms to resolve. Return to the Emergency Department if your symptoms worsen, do not improve, or if you have any other problems. Please contact your doctor or call one of the physicians/clinics you have been referred to that are listed on the Patient Visit Information form that is included in your discharge packet. Bring any paperwork you were given at discharge with you along with any medications you are taking to your follow up visit. Our treatment cannot replace ongoing medical care by a primary care provider outside of the emergency department. Thank you for allowing the [facility] team to be part of your care today. If you had an X-Ray or CT scan: A Radiologist will review the ED reading if any change in treatment is needed we will contact you. If you had a blood, urine, or wound culture: It will take several days for the results, if any change in treatment is needed we will contact you. If you had an STI test: It will take 48 hours for the results. Please call after 1 week if you have not heard back. Instructions: Stomach Ache and Stomach Upset, Drug Abuse and Drug Addiction (DC)
--- NOTE | 2018-09-10 06:54 | CARD ---
APPROVED REPORT Date of service: 09/10/2018 EKG Measurement Heart [id number] <Conclusion> Normal sinus rhythm ST elevation, probably due to early repolarization Borderline ECG
== END 2018-09-10 06:37 | disposition home or self-care (01) ==
LOC: H.ER 01:57
DX: R10.9 Unspecified abdominal pain (principal); F19.10 Other psychoactive substance abuse, uncomplicated; F10.129 Alcohol abuse with intoxication, unspecified
CPT/HCPCS: 80053; 80320; 83690; 85025; 93005; 96374; 99285; J2405; J7030

== ENCOUNTER 2018-09-18 17:28 | Emergency (ER) | payer MEDICAID ==
[2018-09-18 17:28] VITALS: BMI 21.5
[2018-09-18] MEDS ORDERED: Sodium Chloride 0.9% 1,000 ML IV STA (17:53)
[2018-09-18 18:21] LABS: BASO # 0.1 K/uL (0.0-0.2); BASO % 0.5 % (0.0-2.0); EOS # 0.1 K/uL (0.0-0.7); EOS % 0.5 % (0.0-4.0); HEMOGLOBIN 14.1 g/dL (12.0-18.0); LYMPH # 1.6 K/uL (1.0-4.3); LYMPH % 13.6 % (20.0-40.0); MEAN CELL VOLUME 89.5 fl (80.0-94.0); MEAN CORPUSCULAR HGB CONC 33.6 g/dL (33.0-37.0); MEAN PLATELET VOLUME 7.9 fl (7.2-11.7); MONO # 0.7 K/uL (0.0-0.8); MONO % 6.4 % (0.0-10.0); NEUT # 9.1 K/uL (1.8-7.0); RBC 4.71 Mil/uL (4.40-5.90); RED CELL DISTRIBUTION WIDTH 13.7 % (11.5-14.5); WHITE BLOOD COUNT 11.5 K/uL (4.8-10.8)
[2018-09-18 18:27] LABS: INR 1.1; PROTHROMBIN TIME 12.6 Seconds (9.8-13.1)
[2018-09-18 18:29] LABS: PARTIAL THROMBOPLASTIN TIME 33.4 Seconds (25.6-37.1)
--- NOTE | 2018-09-18 18:36 | ED PDOC ---
HPI: Chest Pain Time Seen by Provider: 09/18/18 17:40 Chief Complaint (Nursing): Chest Pain Chief Complaint (Provider): Chest Pain History Per: Patient History/Exam Limitations: no limitations Onset/Duration Of Symptoms: Hrs (2x) Current Symptoms Are (Timing): Still Present Severity: Moderate Quality: Pressure Associated Symptoms: Dyspnea Additional Complaint(s): 33 year old male with a history of polysubstance abuse presents to the ED for an evaluation of a pressure-like substernal chest pain (non-radiating) that started 2x hours prior to arrival. Patient report that he was on a "crack binge since yesterday", and did crack cocaine 5x minutes prior to onset of pain. Patient denies any current drug or alcohol use. Patient states he feels like "his heart is going to explode out of his chest". PMD: None Past Medical History Reviewed: Historical Data, Nursing Documentation, Vital Signs Vital Signs: Last Vital Signs Temp 98.3 F 09/18/18 17:39 Pulse 101 H 09/18/18 17:39 Resp 20 09/18/18 17:39 BP 142/93 H 09/18/18 17:39 Pulse Ox 99 09/18/18 17:39 - Medical History PMH: Anxiety, Asthma, Bipolar Disorder, Bronchitis, Depression, Gastritis, HTN Denies: Diabetes, Hepatitis, HIV, Kidney Stones, Chronic Kidney Disease, Seizures, Sexually Transmitted Disease - Surgical History Other surgeries: left arm surgery - Family History Family History: States: Hypertension - Social History Drugs: Cocaine - Immunization History Hx Tetanus Toxoid Vaccination: No Hx Influenza Vaccination: No Hx Pneumococcal Vaccination: No - Home Medications Home Medications: Ambulatory Orders Medication Instructions Recorded No Known Home Med 07/02/18 - Allergies Allergies/Adverse Reactions: Allergies Allergy/AdvReac Type Severity Reaction Status Date / Time FISH Allergy RASH Verified 09/18/18 17:39 shellfish derived Allergy RASH Verified 09/18/18 17:39 Review of Systems ROS Statement: Except As Marked, All Systems Reviewed And Found Negative Cardiovascular: Positive for: Chest Pain (substernal) Respiratory: Positive for: Shortness of Breath Physical Exam - Reviewed Nursing Documentation Reviewed: Yes Vital Signs Reviewed: Yes - Physical Exam Appears: Positive for: Non-toxic, In Acute Distress (mild painful distress) Head Exam: Positive for: ATRAUMATIC, NORMOCEPHALIC Skin: Positive for: Warm, Dry Eye Exam: Positive for: EOMI, PERRL ENT: Negative for: Pharyngeal Erythema, Tonsillar Exudate Neck: Positive for: Painless ROM, Supple Cardiovascular/Chest: Positive for: Regular Rate, Rhythm, Chest Non Tender Respiratory: Positive for: Normal Breath Sounds. Negative for: Respiratory Distress Gastrointestinal/Abdominal: Positive for: Soft. Negative for: Tenderness Back: Positive for: Normal Inspection. Negative for: Muscle Spasm Extremity: Positive for: Normal ROM. Negative for: Deformity Lymphatic: Negative for: Adenopathy Neurologic/Psych: Positive for: Alert. Negative for: Motor/Sensory Deficits, Other (slurred speech) - Laboratory Results Result Diagrams: 09/18/18 18:18 09/18/18 18:18 - ECG ECG: Positive for: Interpreted By Me, Viewed By Me ECG Rhythm: Positive for: Normal QRS, Normal ST Segment, Sinus Rhythm (96 beats per minute). Negative for: Nonspecific Changes O2 Sat by Pulse Oximetry: 99 (RA) Pulse Ox Interpretation: Normal - Radiology X-Ray: Viewed By Me, Read By Radiologist (see MDM note) X-Ray Interpretation: No Acute Disease - Progress ED Course And Treament: Patient is well known to ED for occasional violent behavior. At this time, patient is calm and cooperative. Medical Decision Making Medical Decision Makin:40 Initial impression: 33 year old male with chest pain associated with cocaine use. Initial plan: * XRay chest 2 views * alcohol serum * CMP * creatine phosphokinase * drug screen * magnesium * phosphorous * troponin I * udip * CBC * PT and PTT * IV NS 1,000 ml IV 1,000mls/hr * ativan 1 mg IVP * reevaluation 18:45 XRay chest read and reviewed by a radiologist FINDINGS: LUNGS: No active pulmonary disease. PLEURA: No significant pleural effusion identified. No pneumothorax apparent. CARDIOVASCULAR: No aortic atherosclerotic calcification present. Normal cardiac size. No pulmonary vascular congestion. OSSEOUS STRUCTURES: No significant abnormalities. VISUALIZED UPPER ABDOMEN: Normal. OTHER FINDINGS: None. IMPRESSION: No interval acute cardiopulmonary disease appreciated. 22:30 Labs unremarkable. Patient reports pain again. Repeat EKG: Normal again Pending repeat troponin I at 21:00. 2144 Repeat troponin negative Stable for discharge Resources given for drug addiction. Advised clinic follow up as well. -- Scribe Attestation: Documented byCammie Gray, acting as a scribe for Jailyn Rose MD. Provider Scribe Attestation: All medical record entries made by the Scribe were at my direction and personally dictated by me. I have reviewed the chart and agree that the record accurately reflects my personal performance of the history, physical exam, medical decision making, and the department course for this patient. I have also personally Disposition - Clinical Impression Clinical Impression: Substance abuse Counseled Patient/Family Regarding: Studies Performed, Diagnosis, Need For Followup - Disposition Referrals: [facility] [Outside] Disposition: Routine/Home Disposition Time: 22:17 Condition: STABLE Additional Instructions: STOP USING DRUGS FOLLOW UP WITH DRUG ADDICTION SERVICES AND CLINIC WITHIN A WEEK Instructions: Drug Abuse and Drug Addiction (DC), Cocaine Use Disorder, Chest Pain (DC)
[2018-09-18 18:47] LABS: ALB/GLOB RATIO 1.2 (1.0-2.1); ALBUMIN 4.5 g/dL (3.5-5.0); ALT/SGPT 45 U/L (21-72); AST/SGOT 35 U/L (17-59); BLOOD UREA NITROGEN 22 mg/dl (9-20); CALCIUM 9.4 mg/dL (8.4-10.2); GFR NON-AFRICAN AMERICAN > 60
--- NOTE | 2018-09-18 18:48 | RAD ---
Date of service: 09/18/2018 HISTORY: chest pain COMPARISON: Frontal chest radiograph 08/17/2018. TECHNIQUE: Chest PA and lateral FINDINGS: LUNGS: No active pulmonary disease. PLEURA: No significant pleural effusion identified. No pneumothorax apparent. CARDIOVASCULAR: No aortic atherosclerotic calcification present. Normal cardiac size. No pulmonary vascular congestion. OSSEOUS STRUCTURES: No significant abnormalities. VISUALIZED UPPER ABDOMEN: Normal. OTHER FINDINGS: None. IMPRESSION: No interval acute cardiopulmonary disease appreciated.
[2018-09-18] MEDS ORDERED: Aspirin 325 mg EC Tablets PO STA (20:21)
[2018-09-18] MEDS ORDERED: Aspirin 325 mg EC Tablets PO ONE (20:51)
[2018-09-18 21:31] LABS: BARBITURATES, UR NEGATIVE (NEGATIVE); BENZODIAZEPINES, UR NEGATIVE (NEGATIVE); OPIATES, UR POSITIVE (NEGATIVE); PHENCYCLIDINE, UR NEGATIVE (NEGATIVE)
[2018-09-18 23:01] VITALS: BP 107/56; PULSE 71; RESP 16; TEMP 97.7; O2SAT 97
--- NOTE | 2018-09-19 18:14 | CARD ---
APPROVED REPORT Date of service: 09/18/2018 EKG Measurement Heart [id number] <Conclusion> Normal sinus rhythm Early repolarization Normal ECG
== END 2018-09-18 22:57 | disposition home or self-care (01) ==
LOC: H.ER 17:28
DX: F19.20 Other psychoactive substance dependence, uncomplicated (principal); Z86.59 Personal history of other mental and behavioral disorders; I10 Essential (primary) hypertension; J45.909 Unspecified asthma, uncomplicated
CPT/HCPCS: 71046; 80053; 80320; 80324; 80345; 80346; 80349; 80353; 80358; 80361; 82550; 82948; 83735; 83992; 84100; 84484; 85025; 85610; 85730; 93005; 96361; 96374; 99285; J2060; J7030

== ENCOUNTER 2018-09-29 23:38 | Emergency (ER) | payer MEDICAID ==
[2018-09-29 23:38] VITALS: BMI 21.5
--- NOTE | 2018-09-30 01:24 | ED PDOC ---
HPI: Psych/Substance Abuse Time Seen by Provider: 09/30/18 00:19 Chief Complaint (Nursing): Psychiatric Evaluation Chief Complaint (Provider): Psychiatric Evaluation History Per: Patient History/Exam Limitations: no limitations Current Symptoms Are (Timing): Still Present Modifying Factor(s): None Additional Complaint(s): 55 year old male with a history of depression and substance abuse for psychiatric evaluation. Patient admits to taking PCP today and was thinking of killing other people in [place]. He denies a plan and other complaints. PMD: none provided Past Medical History Reviewed: Historical Data Vital Signs: Last Vital Signs Temp 98.0 F 09/30/18 00:07 Pulse 101 H 09/30/18 00:07 Resp 20 09/30/18 00:07 BP 121/74 09/30/18 00:07 Pulse Ox 98 09/30/18 00:07 - Medical History PMH: Anxiety, Asthma, Bipolar Disorder, Bronchitis, Depression, Gastritis, HTN Denies: Diabetes, Hepatitis, HIV, Kidney Stones, Chronic Kidney Disease, Seizures, Sexually Transmitted Disease - Surgical History Surgical History: No Surg Hx - Family History Family History: States: Unknown Family Hx, Hypertension - Immunization History Hx Tetanus Toxoid Vaccination: No Hx Influenza Vaccination: No Hx Pneumococcal Vaccination: No - Home Medications Home Medications: Ambulatory Orders Medication Instructions Recorded No Known Home Med 07/02/18 - Allergies Allergies/Adverse Reactions: Allergies Allergy/AdvReac Type Severity Reaction Status Date / Time FISH Allergy RASH Verified 09/30/18 00:07 shellfish derived Allergy RASH Verified 09/30/18 00:07 Review of Systems ROS Statement: Except As Marked, All Systems Reviewed And Found Negative Psych: Positive for: Depression Physical Exam - Reviewed Nursing Documentation Reviewed: Yes Vital Signs Reviewed: Yes - Physical Exam Appears: Positive for: No Acute Distress Head Exam: Positive for: ATRAUMATIC, NORMAL INSPECTION, NORMOCEPHALIC Skin: Positive for: Normal Color Eye Exam: Positive for: Normal appearance Neck: Positive for: Normal, Painless ROM Extremity: Positive for: Normal ROM (upper and lower extremities) Neurologic/Psych: Positive for: Alert, Oriented. Negative for: Motor/Sensory Deficits - ECG O2 Sat by Pulse Oximetry: 98 (RA) Pulse Ox Interpretation: Normal Medical Decision Making Medical Decision Makin Initial Plan: --UDS --Alcohol --crisis evaluation UDS positive for cocaine, opiates and phencyclidine. 05:15 --Patient is cleared by crisis and stable for discharge at this time. Diagnosis is substance abuse as per Dr. Trotter. Scribe Attestation: Documented by Corinne Christie acting as a scribe for Forrest Spears MD Provider Scribe Attestation: All medical record entries made by the Scribe were at my direction and personally dictated by me. I have reviewed the chart and agree that the record accurately reflects my personal performance of the history, physical exam, medical decision making, and the department course for this patient. I have also personally directed, reviewed, and agree with the discharge instructions and disposition. Disposition - Clinical Impression Clinical Impression: Substance abuse - Patient ED Disposition Is Patient to be Admitted: No Doctor Will See Patient In The: Office Counseled Patient/Family Regarding: Studies Performed, Diagnosis, Need For Followup - Disposition [facility]errals[facility]] Disposition: Routine/Home Disposition Time: 05:15 Condition: STABLE Additional Instructions: FOR SUBSTANCE ABUSE SERVICES: CONTACT THE ADDICTION SERVICES HOTLINE 19/05 FOR MENTAL HEALTH SERVICES [facility] [address] [place] [address] Instructions: Drug Abuse and Drug Addiction (DC)
[2018-09-30 02:13] LABS: BARBITURATES, UR NEGATIVE (NEGATIVE); BENZODIAZEPINES, UR NEGATIVE (NEGATIVE); OPIATES, UR POSITIVE (NEGATIVE); PHENCYCLIDINE, UR POSITIVE (NEGATIVE)
[2018-09-30 06:02] VITALS: RESP 18
[2018-09-30 07:00] VITALS: BP 113/55; PULSE 80; TEMP 98.1; O2SAT 97
== END 2018-09-30 06:35 | disposition home or self-care (01) ==
LOC: H.ER 23:38
DX: F19.10 Other psychoactive substance abuse, uncomplicated (principal); Z86.59 Personal history of other mental and behavioral disorders; I10 Essential (primary) hypertension; J45.909 Unspecified asthma, uncomplicated

== ENCOUNTER 2018-10-02 01:36 | Emergency (ER) | payer MEDICAID ==
[2018-10-02 02:21] VITALS: BMI 27.4
--- NOTE | 2018-10-02 02:32 | ED PDOC ---
HPI: Chest Pain Time Seen by Provider: 10/02/18 01:45 History Per: Patient Onset/Duration Of Symptoms: Hrs Current Symptoms Are (Timing): Still Present Additional Complaint(s): Hx of drug abuse presenting with chest pain. States it started at 1030PM after using PCP, cocaine, and drinking alcohol. States it feels pressure-like, nonradiating, associated with worsening pain when taking a deep breath. No fevers, cough. No diaphoresis. Denies suicidal or homicidal ideation. Past Medical History Reviewed: Historical Data, Nursing Documentation, Vital Signs - Medical History PMH: Anxiety, Asthma, Bipolar Disorder, Bronchitis, Depression, Gastritis, HTN Denies: Diabetes, Hepatitis, HIV, Kidney Stones, Chronic Kidney Disease, Seizures, Sexually Transmitted Disease - Family History Family History: States: Unknown Family Hx, Hypertension - Immunization History Hx Tetanus Toxoid Vaccination: No Hx Influenza Vaccination: No Hx Pneumococcal Vaccination: No - Home Medications Home Medications: Ambulatory Orders Medication Instructions Recorded No Known Home Med 07/02/18 - Allergies Allergies/Adverse Reactions: Allergies Allergy/AdvReac Type Severity Reaction Status Date / Time FISH Allergy RASH Verified 09/30/18 00:07 shellfish derived Allergy RASH Verified 09/30/18 00:07 PARADISE Risk Score for UA/NSTEMI - PARADISE Risk Score Age > 64: NO 3 or more CAD Risk Factors: NO Known CAD (Stenosis greater than 50%): NO Aspirin use in past 7 days: NO Severe Angina: NO EKG ST changes greater than 0.5mm: NO Positive Cardiac Marker: NO PARADISE Score: 0 Risk %: 5% Curb-65 Severity Score - CURB-65 Severity Score Confusion: No Bun >19mg/dl (>7mmol/L): No Respiratory Rate greater than/equal to 30: No Systolic BP <90 or Diastolic BP less than/equal 60mmHg: No Age >64: No Curb-65 Score: 0 Percentage 30-day mortality: 0.6% Wells Criteria for PE - Wells Criteria for Pulmonary Embolism Clinical Signs and Symptoms of DVT: No P.E is #1 Diagnosis, or Equally Likely: No Heart Rate >100: No Immobilization at least 3 days;Surgery previous 4 weeks: No Previous, objectively diagnosed PE or DVT: No Hemoptysis: No Malignancy w/treatment within 6 months, or palliative: No Total Score: 0 Review of Systems ROS Statement: Except As Marked, All Systems Reviewed And Found Negative Cardiovascular: Positive for: Chest Pain Respiratory: Positive for: Pleuritic Pain Physical Exam - Reviewed Nursing Documentation Reviewed: Yes Vital Signs Reviewed: Yes - Physical Exam Appears: Positive for: Well, Non-toxic, No Acute Distress Head Exam: Positive for: ATRAUMATIC, NORMAL INSPECTION, NORMOCEPHALIC Skin: Positive for: Normal Color, Warm, DRY Eye Exam: Positive for: EOMI, Normal appearance, PERRL ENT: Positive for: Normal ENT Inspection Neck: Positive for: Normal, Painless ROM Cardiovascular/Chest: Positive for: Regular Rate, Rhythm Respiratory: Positive for: CNT, Normal Breath Sounds Gastrointestinal/Abdominal: Positive for: Normal Exam, Soft. Negative for: Tenderness Back: Positive for: Normal Inspection Extremity: Positive for: Normal ROM Neurologic/Psych: Positive for: Alert, patient safety attendant II-XII, Oriented. Negative for: Motor/Sensory Deficits - ECG ECG Rhythm: Positive for: Normal QRS, Normal ST Segment, Sinus Rhythm Rate: 80 Medical Decision Making Medical Decision Makin Patient presenting with chest pain after drug abuse --EKG shows NSR, vitals stable, patient is well appearing --Will provide saline nebulizer --Will re-mayda and continue to monitor 600 --Patient no longer complaining of chest pain --Well appearing --Stable vitals --Suitable for outpatient followup Disposition - Clinical Impression Clinical Impression: Cocaine abuse, Alcohol abuse, PCP (phencyclidine) abuse - Patient ED Disposition Is Patient to be Admitted: No - Disposition Referrals: Jose David Ascencio MD [Family Provider] - Disposition: Routine/Home Disposition Time: 06:07 Condition: IMPROVED Instructions: Drug Abuse and Drug Addiction (DC), Effects of Alcohol on Your Health
[2018-10-02 06:51] VITALS: BP 142/66; PULSE 82; RESP 16; TEMP 97.7; O2SAT 99
== END 2018-10-02 06:52 | disposition home or self-care (01) ==
LOC: H.ER 01:36
DX: F14.10 Cocaine abuse, uncomplicated (principal); F19.11 Other psychoactive substance abuse, in remission; F10.10 Alcohol abuse, uncomplicated; F31.9 Bipolar disorder, unspecified; F41.9 Anxiety disorder, unspecified; I10 Essential (primary) hypertension

== ENCOUNTER 2018-10-05 17:42 | Emergency (ER) | payer MEDICAID ==
[2018-10-05 17:42] VITALS: BMI 27.4
[2018-10-05 17:56] VITALS: BP 139/91; PULSE 90; RESP 20; TEMP 98.3; O2SAT 99
== END 2018-10-05 18:05 | disposition left against medical advice (07) ==
LOC: H.ER 17:42
DX: Z02.89 Encounter for other administrative examinations (principal)

== ENCOUNTER 2018-10-19 23:05 | Emergency (ER) | payer MEDICAID ==
[2018-10-19 23:05] VITALS: BMI 27.4
[2018-10-19 23:18] VITALS: TEMP 98.5
[2018-10-20] MEDS ORDERED: Sodium Chloride 0.9% 1,000 ML IV STA (00:06)
--- NOTE | 2018-10-20 00:34 | ED PDOC ---
HPI: Chest Pain Time Seen by Provider: 10/19/18 23:38 Chief Complaint (Nursing): Chest Pain Chief Complaint (Provider): Chest Pain History Per: Patient History/Exam Limitations: no limitations Onset/Duration Of Symptoms: Mins (20 minutes prior to arrival ) Current Symptoms Are (Timing): Better Additional Complaint(s): 33 year old male presents to the ED for an evaluation for a chest pain onset 20 minutes prior to arrival. Patient states the chest pain has resolved and he feels antsy and alert. He reports he has been using PCP and crystal meth for 3 days. Denies abdominal pain, shortness of breath, fever, nausea, vomiting, rash or SI/HI. PMD: Catherine Morris Past Medical History Reviewed: Historical Data, Nursing Documentation, Vital Signs Vital Signs: Last Vital Signs Temp 98.5 F 10/19/18 23:16 Pulse 90 10/19/18 23:16 Resp 16 10/19/18 23:16 BP 157/54 H 10/19/18 23:16 Pulse Ox 98 10/19/18 23:16 - Medical History PMH: Anxiety, Asthma, Bipolar Disorder, Bronchitis, Depression, Gastritis, HTN Denies: Diabetes, Hepatitis, HIV, Kidney Stones, Chronic Kidney Disease, Seizures, Sexually Transmitted Disease - Surgical History Surgical History: No Surg Hx - Family History Family History: States: Unknown Family Hx, Hypertension - Social History Current smoker - smoking cessation education provided: No Alcohol: None Drugs: Other (Phencyclidine and crystal meth) - Immunization History Hx Tetanus Toxoid Vaccination: No Hx Influenza Vaccination: No Hx Pneumococcal Vaccination: No - Home Medications Home Medications: Ambulatory Orders Medication Instructions Recorded RX: No Known Home Med 07/02/18 - Allergies Allergies/Adverse Reactions: Allergies Allergy/AdvReac Type Severity Reaction Status Date / Time FISH Allergy RASH Verified 10/19/18 23:18 shellfish derived Allergy RASH Verified 10/19/18 23:18 Review of Systems ROS Statement: Except As Marked, All Systems Reviewed And Found Negative Constitutional: Negative for: Fever, Chills Cardiovascular: Negative for: Chest Pain Respiratory: Negative for: Shortness of Breath Gastrointestinal: Negative for: Nausea, Vomiting, Abdominal Pain, Diarrhea Skin: Negative for: Rash Neurological: Negative for: Weakness, Numbness Psych: Positive for: Other (antsy and alert). Negative for: Suicidal ideation Physical Exam - Reviewed Nursing Documentation Reviewed: Yes Vital Signs Reviewed: Yes - Physical Exam Appears: Positive for: Well, Non-toxic, No Acute Distress Head Exam: Positive for: ATRAUMATIC, NORMAL INSPECTION, NORMOCEPHALIC Skin: Positive for: Normal Color, Warm, Dry. Negative for: Rash Eye Exam: Positive for: EOMI, Normal appearance, PERRL ENT: Positive for: Normal ENT Inspection Neck: Positive for: Normal, Painless ROM, Supple. Negative for: Decreased ROM Cardiovascular/Chest: Positive for: Regular Rate, Rhythm. Negative for: Murmur Respiratory: Positive for: Normal Breath Sounds. Negative for: Decreased Breath Sounds, Wheezing, Respiratory Distress Gastrointestinal/Abdominal: Positive for: Normal Exam, Soft. Negative for: Tenderness Back: Positive for: Normal Inspection Extremity: Positive for: Normal ROM. Negative for: Tenderness, Pedal Edema, Deformity Neurologic/Psych: Positive for: Alert, Oriented (x3). Negative for: Motor/Sensory Deficits - Laboratory Results Result Diagrams: 10/20/18 00:32 10/20/18 00:32 - ECG ECG: Positive for: Interpreted By Me, Viewed By Me ECG Rhythm: Positive for: Sinus Rhythm Rate: 83 O2 Sat by Pulse Oximetry: 98 Medical Decision Making Medical Decision Making: Time: 2350 Initial Plan: drug abuse CMP Drug screen Troponin CBC w/ Differential Chest Portable [rad] Normal Saline 999 mls/hr Reevaluation EKG: normal sinus rhythm and 83bpm. 700 am Upon provider reevaluation patient is feeling better, is medically stable, and requires no further treatment in the ED at this time. pt is awke and alert, ambulating w steady gait. Patient will be discharged home. Counseling was provided and all questions were answered regarding diagnosis and need for follow up with clinic. There is agreement to discharge plan. Return if symptoms persist or worsen. Scribe Attestation: Documented by Andrew Luther, acting as a scribe for Vinay Maldonado MD. Provider Scribe Attestation: All medical record entries made by the Scribe were at my direction and personally dictated by me. I have reviewed the chart and agree that the record accurately reflects my personal performance of the history, physical exam, medical decision making, and the department course for this patient. I have also personally directed, reviewed, and agree with the discharge instructions and disposition. Disposition - Clinical Impression Clinical Impression: Drug abuse - Patient ED Disposition Is Patient to be Admitted: No Counseled Patient/Family Regarding: Studies Performed, Diagnosis, Need For Followup - Disposition Disposition: Routine/Home Disposition Time: 06:50 Condition: IMPROVED Additional Instructions: follow up in the clinic in 2 days return to the ED with any worsening or concerning symptoms Instructions: Drug Abuse and Drug Addiction (DC) Forms: [employer] (Angolan)
[2018-10-20 00:43] LABS: BASO % 0.5 % (0.0-2.0); EOS # 0.2 K/uL (0.0-0.7); EOS % 1.9 % (0.0-4.0); HEMOGLOBIN 13.3 g/dL (12.0-18.0); LYMPH # 1.9 K/uL (1.0-4.3); LYMPH % 19.3 % (20.0-40.0); MEAN CELL VOLUME 89.5 fl (80.0-94.0); MEAN CORPUSCULAR HEMOGLOBIN 30.4 pg (27.0-31.0); MEAN PLATELET VOLUME 7.9 fl (7.2-11.7); MONO # 0.9 K/uL (0.0-0.8); MONO % 9.4 % (0.0-10.0); NEUT # 6.9 K/uL (1.8-7.0); NEUT % 68.9 % (50.0-75.0); RBC 4.38 Mil/uL (4.40-5.90); RED CELL DISTRIBUTION WIDTH 13.8 % (11.5-14.5)
[2018-10-20 00:50] LABS: ALB/GLOB RATIO 1.1 (1.0-2.1); ALBUMIN 3.8 g/dL (3.5-5.0); ALT/SGPT 42 U/L (21-72); AST/SGOT 32 U/L (17-59); BLOOD UREA NITROGEN 16 mg/dl (9-20); CALCIUM 8.8 mg/dL (8.4-10.2); GFR NON-AFRICAN AMERICAN > 60
[2018-10-20 06:30] LABS: BARBITURATES, UR NEGATIVE (NEGATIVE); BENZODIAZEPINES, UR NEGATIVE (NEGATIVE); OPIATES, UR NEGATIVE (NEGATIVE); PHENCYCLIDINE, UR NEGATIVE (NEGATIVE)
[2018-10-20 06:33] LABS: SQUAMOUS EPITHIAL < 1 /hpf (0-5); URINE BACTERIA RARE (<OCC); URINE BILIRUBIN NEGATIVE (NEGATIVE); URINE BLOOD NEGATIVE (NEGATIVE); URINE CLARITY SLIGHTY-CLOUDY (Clear); URINE COLOR YELLOW (YELLOW); URINE GLUCOSE (UA) NEG (NEGATIVE); URINE LEUKOCYTE ESTERASE NEG Leu/uL (Negative); URINE PROTEIN NEGATIVE (NEGATIVE); URINE UROBILINOGEN 0.2-1.0 mg/dL (0.2-1.0)
[2018-10-20 06:58] VITALS: BP 139/82; RESP 17
--- NOTE | 2018-10-20 14:53 | RAD ---
Date of service: 10/20/2018 HISTORY: chest pain COMPARISON: Chest radiographs 09/18/2018. FINDINGS: LUNGS: No active pulmonary disease. PLEURA: No significant pleural effusion identified, no pneumothorax apparent. CARDIOVASCULAR: No aortic atherosclerotic calcification present. Normal cardiac size. No pulmonary vascular congestion. OSSEOUS STRUCTURES: No significant abnormalities. VISUALIZED UPPER ABDOMEN: Normal. OTHER FINDINGS: None. IMPRESSION: No interval acute cardiopulmonary disease appreciated.
[2018-10-22 05:21] VITALS: PULSE 83; O2SAT 98
== END 2018-10-20 07:00 | disposition home or self-care (01) ==
LOC: H.ER 23:05
DX: F19.10 Other psychoactive substance abuse, uncomplicated (principal); Z86.59 Personal history of other mental and behavioral disorders; I10 Essential (primary) hypertension; J45.909 Unspecified asthma, uncomplicated
CPT/HCPCS: 71045; 80053; 80324; 80345; 80346; 80349; 80353; 80358; 80361; 81003; 83992; 84484; 85025; 87086; 99283; J7030

== ENCOUNTER 2018-10-25 01:27 | Emergency (ER) | payer MEDICAID ==
[2018-10-25 01:28] VITALS: BMI 27.4
[2018-10-25 02:05] VITALS: O2SAT 100
--- NOTE | 2018-10-25 02:34 | ED PDOC ---
HPI: Psych/Substance Abuse Time Seen by Provider: 10/25/18 02:00 Chief Complaint (Nursing): Substance Abuse Chief Complaint (Provider): Anxiety, substance abuse History Per: Patient History/Exam Limitations: no limitations Current Symptoms Are (Timing): Still Present Additional Complaint(s): 33yo male, with history of polysubstance abuse, comes to ER with complaints of anxiety and cough. Patient states for the past 2 days, he has been using crystal meth and today he took brandon, after which he felt as if he "was going to ." Patient states he feels as if his heart rate is increased and feels anxious. He states upon arrival to ER he feels much better but still has mild anxiety. Patient denies any chest pain, shortness of breath, nausea and vomiting; patient noted to tolerate food as he was eating while on the stretcher. Past Medical History Reviewed: Historical Data, Nursing Documentation, Vital Signs Vital Signs: Last Vital Signs Temp 98.1 F 10/25/18 02:02 Pulse 83 10/25/18 02:02 Resp 16 10/25/18 02:02 BP 130/84 10/25/18 02:02 Pulse Ox 100 10/25/18 02:02 - Medical History PMH: Anxiety, Asthma, Bipolar Disorder, Bronchitis, Depression, Gastritis, HTN Denies: Diabetes, Hepatitis, HIV, Kidney Stones, Chronic Kidney Disease, Seizures, Sexually Transmitted Disease - Surgical History Surgical History: No Surg Hx - Family History Family History: States: Unknown Family Hx, Hypertension - Immunization History Hx Tetanus Toxoid Vaccination: No Hx Influenza Vaccination: No Hx Pneumococcal Vaccination: No - Home Medications Home Medications: Ambulatory Orders Medication Instructions Recorded RX: No Known Home Med 07/02/18 - Allergies Allergies/Adverse Reactions: Allergies Allergy/AdvReac Type Severity Reaction Status Date / Time FISH Allergy RASH Verified 10/19/18 23:18 shellfish derived Allergy RASH Verified 10/19/18 23:18 Review of Systems ROS Statement: Except As Marked, All Systems Reviewed And Found Negative Constitutional: Negative for: Fever, Chills Cardiovascular: Positive for: Palpitations. Negative for: Chest Pain Respiratory: Negative for: Shortness of Breath Gastrointestinal: Negative for: Nausea, Vomiting Psych: Positive for: Anxiety Physical Exam - Reviewed Nursing Documentation Reviewed: Yes Vital Signs Reviewed: Yes - Physical Exam Appears: Positive for: Non-toxic Head Exam: Positive for: ATRAUMATIC, NORMAL INSPECTION, NORMOCEPHALIC Skin: Positive for: Normal Color, Warm Neck: Positive for: Normal, Supple Cardiovascular/Chest: Positive for: Regular Rate, Rhythm Respiratory: Positive for: Normal Breath Sounds Gastrointestinal/Abdominal: Positive for: Normal Exam, Soft Back: Positive for: Normal Inspection Extremity: Positive for: Normal ROM. Negative for: Pedal Edema Neurologic/Psych: Positive for: Alert, Oriented. Negative for: Motor/Sensory Deficits - ECG O2 Sat by Pulse Oximetry: 100 (RA) Pulse Ox Interpretation: Normal Medical Decision Making Medical Decision Making: Impression: 33yo male, with polysubstance abuse Plan: Patient calm and cooperative, with an unremarkable exam. Patient with resolved anxiety Patient to stay in ER for observation and will progress workup if symptoms develop. 0605 Patient observed in ER and remained asymptomatic. Patient is awake, alert and oriented x 3 with steady gait. Patient stable for discharge home. Scribe Attestation: Documented by Susie Tillman, acting as a scribe for Cammie Stuart MD. Provider Scribe Attestation: All medical record entries made by the Scribe were at my direction and personally dictated by me. I have reviewed the chart and agree that the record accurately reflects my personal performance of the history, physical exam, medical decision making, and the department course for this patient. I have also personally directed, reviewed, and agree with the discharge instructions and disposition. Disposition - Clinical Impression Clinical Impression: Substance abuse - Disposition Disposition: Routine/Home Disposition Time: 06:05 Condition: IMPROVED Additional Instructions: Seek professional help for drug addiction. Follow up with primary medical doctor. Instructions: Drug Abuse and Drug Addiction (DC), Alcohol Abuse and Alcoholism (DC) Forms: [employer] (Vietnamese) Print Language: GERMAN
[2018-10-25 07:56] VITALS: BP 127/72; PULSE 79; RESP 18; TEMP 98.2
== END 2018-10-25 07:06 | disposition home or self-care (01) ==
LOC: H.ER 01:27
DX: F19.10 Other psychoactive substance abuse, uncomplicated (principal); Z86.59 Personal history of other mental and behavioral disorders; I10 Essential (primary) hypertension; J45.909 Unspecified asthma, uncomplicated

== ENCOUNTER 2019-02-22 03:53 | Emergency (ER) | payer MEDICAID ==
[2019-02-22 03:53] VITALS: BMI 27.4
[2019-02-22 04:05] VITALS: RESP 16
--- NOTE | 2019-02-22 05:56 | ED PDOC ---
HPI: Psych/Substance Abuse Time Seen by Provider: 02/22/19 05:00 Chief Complaint (Nursing): Substance Abuse Chief Complaint (Provider): substance abuse/SI History Per: Patient History/Exam Limitations: no limitations Onset/Duration Of Symptoms: Days Current Symptoms Are (Timing): Still Present Suicide/Self Injury Attempted (Context): None Modifying Factor(s): Cocaine, Crack Severity: None Additional History Per: Patient Additional Complaint(s): 33 y/o male with history of substance abuse presents with EMS ambulatory after being found sleeping in the street. Patient admits to using crystal meth, crack/cocaine "all day" yesterday. Additionally patient states he is hearing voices telling him that they're coming to get him. Patient also states he feels like "killing" himself with a gun. He states he has access to a gun but does not have one presently. Patient is homeless, seen multiple times in ED for poly substance abuse. Past Medical History Reviewed: Historical Data, Nursing Documentation, Vital Signs Vital Signs: Last Vital Signs Temp 97.8 F 02/22/19 04:03 Pulse 74 02/22/19 04:03 Resp 16 02/22/19 04:03 BP 162/79 H 02/22/19 04:03 Pulse Ox 100 02/22/19 04:03 DIONY Report Viewed: Yes - Medical History PMH: Anxiety, Asthma, Bipolar Disorder, Bronchitis, Depression, Gastritis Denies: Diabetes, Hepatitis, HIV, HTN, Kidney Stones, Chronic Kidney Disease, Seizures, Sexually Transmitted Disease - Surgical History Surgical History: No Surg Hx - Family History Family History: States: Unknown Family Hx, Hypertension - Immunization History Hx Tetanus Toxoid Vaccination: No Hx Influenza Vaccination: No Hx Pneumococcal Vaccination: No - Home Medications Home Medications: Ambulatory Orders Medication Instructions Recorded Divalproex [Depakote DR] 250 mg PO BID #60 tcp 01/18/19 Haloperidol [Haldol] 5 mg PO BID #60 tab 01/18/19 - Allergies Allergies/Adverse Reactions: Allergies Allergy/AdvReac Type Severity Reaction Status Date / Time FISH Allergy RASH Verified 01/15/19 07:09 shellfish derived Allergy RASH Verified 01/15/19 07:09 Review of Systems ROS Statement: Except As Marked, All Systems Reviewed And Found Negative Constitutional: Negative for: Fever, Chills, Sweats, Weakness, Malaise, Weight loss Eyes: Negative for: Pain, Vision Change, Conjunctivae Inflammation, Eyelid Inflammation, Redness ENT: Negative for: Ear Pain, Ear Discharge, Nose Pain, Nose Discharge, Nose Congestion, Mouth Pain, Mouth Swelling, Other Cardiovascular: Negative for: Chest Pain, Palpitations Respiratory: Negative for: Shortness of Breath, SOB with Exertion, Wheezing Gastrointestinal: Negative for: Nausea, Vomiting, Abdominal Pain, Diarrhea, Constipation Neurological: Negative for: Weakness, Numbness, Incoordination, Change in Speech, Confusion, Seizures, Altered Mental Status, Headache, Dizziness Physical Exam - Reviewed Nursing Documentation Reviewed: Yes Vital Signs Reviewed: Yes - Physical Exam Appears: Positive for: Well, Non-toxic, No Acute Distress Head Exam: Positive for: ATRAUMATIC, NORMAL INSPECTION, NORMOCEPHALIC Skin: Positive for: Normal Color, Warm, DRY Eye Exam: Positive for: EOMI, Normal appearance, PERRL ENT: Positive for: Normal ENT Inspection Neck: Positive for: Normal, Painless ROM, Supple Cardiovascular/Chest: Positive for: Regular Rate, Rhythm Respiratory: Positive for: CNT, Normal Breath Sounds Gastrointestinal/Abdominal: Positive for: Normal Exam, Bowel Sounds, Soft. Negative for: Tenderness, Distended Back: Positive for: Normal Inspection Extremity: Positive for: Normal ROM Neurological/Psych: Positive for: Awake, Alert, Normal Tone, Oriented, Mood/Affect (calm, answering questions appropriately) - ECG O2 Sat by Pulse Oximetry: 100 Medical Decision Making Medical Decision Making: Crisis Eval 1:1 obs 06:25: As per [facility] food service worker, psychiatrist wants patient to be re- evaluated at 8am. patient maintained on 1:[address] Jaramillo updated on c ase. Disposition - Clinical Impression Clinical Impression: Polysubstance abuse - Patient ED Disposition Is Patient to be Admitted: No - Disposition Disposition Time: 06:00 Condition: GOOD Forms: [employer] [facility] (Finnish) - POA Present On Arrival: None
--- NOTE | 2019-02-22 07:18 | ED PDOC ---
- ECG O2 Sat by Pulse Oximetry: 97 (RA) Pulse Ox Interpretation: Normal Medical Decision Making Medical Decision Makin Patient signed out to me by Dr. Jaramillo pending crisis evaluation. At this time, patient resting comfortably and is in no acute distress; 1:1 observation maintained for patient safety Patient to be evaluated by psychiatrist at [phone] Patient seen and evaluted by psychiatrist; per Dr. Hoff, patient stable for discharge home Patient given follow up instructions Diagnosis: Stimulant abuse disorder 1007 Patient refusing to leave ER and told he can stay for a couple more minutes Patient became aggressive, started tearing things down from the wall stating "I need my hat." Security called at bedside due to patient's behavior. Scribe Attestation: Documented by Susie Tillman acting as a scribe for Cammie Stuart MD. Provider Attestation: All medical record entries made by the Scribe were at my direction and personally dictated by me. I have reviewed the chart and agree that the record accurately reflects my personal performance of the history, physical exam, medical decision making, and the department course for this patient. I have also personally directed, reviewed, and agree with the discharge instructions and disposition. Disposition - Clinical Impression Clinical Impression: Polysubstance abuse - POA Present On Arrival: None - Disposition Referrals: Alcoholics Anonymous [Outside] Disposition: Routine/Home Disposition Time: 08:40 Condition: GOOD Instructions: Drug Abuse and Drug Addiction (DC) Forms: [employer] (Welsh)
[2019-02-22 08:44] VITALS: BP 106/59; PULSE 75; TEMP 97.8
[2019-02-22 08:57] VITALS: O2SAT 97
== END 2019-02-22 10:05 | disposition home or self-care (01) ==
LOC: H.ER 03:53
DX: F19.10 Other psychoactive substance abuse, uncomplicated (principal); F15.10 Other stimulant abuse, uncomplicated; J45.909 Unspecified asthma, uncomplicated; Z59.0 Homelessness; Z86.59 Personal history of other mental and behavioral disorders

== ENCOUNTER 2019-02-23 04:44 | Emergency (ER) | payer MEDICAID ==
[2019-02-23 04:44] VITALS: BMI 27.4
[2019-02-23 05:06] VITALS: RESP 18
--- NOTE | 2019-02-23 05:25 | ED PDOC ---
HPI: Psych/Substance Abuse Chief Complaint (Provider): CHEST PAIN/SUBSTANCE ABUSE History Per: Patient (33 Y/O MALE HERE WITH CHEST PAIN TODAY AT 10PM. ADMITS TO USE OF COCAINE. DENIES ANY COUGH/URI/FEVER.) <Chio Jaeger - Last Filed: 02/23/19 06:04> <Sean Jaramillo - Last Filed: 02/23/19 06:21> Time Seen by Provider: 02/23/19 05:23 Chief Complaint (Nursing): Substance Abuse Past Medical History Reviewed: Historical Data, Nursing Documentation, Vital Signs Vital Signs: Last Vital Signs Temp 98.6 F 02/23/19 05:04 Pulse 99 H 02/23/19 05:04 Resp 18 02/23/19 05:04 BP 136/89 02/23/19 05:04 Pulse Ox 99 02/23/19 05:04 - Medical History PMH: Anxiety, Asthma, Bipolar Disorder, Bronchitis, Depression, Gastritis Denies: Diabetes, Hepatitis, HIV, HTN, Kidney Stones, Chronic Kidney Disease, Seizures, Sexually Transmitted Disease - Family History Family History: States: Unknown Family Hx, Hypertension - Immunization History Hx Tetanus Toxoid Vaccination: No Hx Influenza Vaccination: No Hx Pneumococcal Vaccination: No <Chio Jaeger - Last Filed: 02/23/19 06:04> Vital Signs: Last Vital Signs Temp 98.6 F 02/23/19 05:04 Pulse 67 02/23/19 05:34 Resp 18 02/23/19 05:04 BP 136/89 02/23/19 05:04 Pulse Ox 99 02/23/19 06:04 <Sean Jaramillo - Last Filed: 02/23/19 06:21> - Home Medications Home Medications: Ambulatory Orders Medication Instructions Recorded Divalproex [Depakote DR] 250 mg PO BID #60 tcp 01/18/19 Haloperidol [Haldol] 5 mg PO BID #60 tab 01/18/19 - Allergies Allergies/Adverse Reactions: Allergies Allergy/AdvReac Type Severity Reaction Status Date / Time FISH Allergy RASH Verified 02/23/19 05:04 shellfish derived Allergy RASH Verified 02/23/19 05:04 Review of Systems ROS Statement: Except As Marked, All Systems Reviewed And Found Negative Cardiovascular: Positive for: Chest Pain <Jaeger,Setu B - Last Filed: 02/23/19 06:04> Physical Exam - Reviewed Nursing Documentation Reviewed: Yes Vital Signs Reviewed: Yes - Physical Exam Appears: Positive for: Well, Non-toxic, No Acute Distress Head Exam: Positive for: ATRAUMATIC, NORMAL INSPECTION, NORMOCEPHALIC Skin: Positive for: Normal Color, Warm, DRY Eye Exam: Positive for: EOMI, Normal appearance, PERRL ENT: Positive for: Normal ENT Inspection Neck: Positive for: Normal, Painless ROM Cardiovascular/Chest: Positive for: Regular Rate, Rhythm Respiratory: Positive for: CNT, Normal Breath Sounds Gastrointestinal/Abdominal: Positive for: Normal Exam, Soft, Tenderness (MILD EPIGASTRIC PAIN DESCRIBED BY PATIENT.) Back: Positive for: Normal Inspection Extremity: Positive for: Normal ROM Neurological/Psych: Positive for: Awake, Alert, Normal Tone <Denice Jaegerjensen Nickie - Last Filed: 02/23/19 06:04> - Laboratory Results Result Diagrams: 02/23/19 05:40 02/23/19 05:40 - ECG ECG Rhythm: Positive for: Sinus Rhythm (NSR 67BPM; NO ECTOPY NO ACUTE CHANGES ST ELEVATION DUE TO EARLY REPOLARIZATION) O2 Sat by Pulse Oximetry: 99 <JaegerDenice leroyjensen Shake - Last Filed: 02/23/19 06:04> - Laboratory Results Result Diagrams: 02/23/19 05:40 02/23/19 05:40 Lab Results: Troponin I < 0.0120 ng/mL (0.00-0.120) 02/23/19 05:40 Total Bilirubin 0.2 mg/dl (0.2-1.3) 02/23/19 05:40 AST 29 U/L (17-59) 02/23/19 05:40 ALT 33 U/L (21-72) 02/23/19 05:40 Alkaline Phosphatase 68 U/L (38-126) 02/23/19 05:40 Total Protein 7.0 G/DL (6.3-8.2) 02/23/19 05:40 Albumin 3.9 g/dL (3.5-5.0) 02/23/19 05:40 Globulin 3.1 gm/dL (2.2-3.9) 02/23/19 05:40 Albumin/Globulin Ratio 1.2 (1.0-2.1) 02/23/19 05:40 Lipase 379 U/L (23-300) H 02/23/19 05:40 <Sean Jaramillo - Last Filed: 02/23/19 06:21> Medical Decision Making Medical Decision Makin Labs reviewed, including Troponin levels, which show no clinically significant abnormalities Patient is stable for discharge home. Diagnosis: Cocaine abuse ScribeAttestation: Documented bySusie Tillman, acting as a scribe for Sean Jaramillo MD. Provider ScribeAttestation: All medical record entries made by the Scribe were at my direction and personally dictated by me. I have reviewed the chart and agree that the record accurately reflects my personal performance of the history, physical exam, medical decision making, and the department course for this patient. I have also personally directed, reviewed, and agree with the discharge instructions and disposition. <Sean Jaramillo - Last Filed: 02/23/19 06:21> Disposition - Disposition Disposition Time: 05:56 Handoff Comments: DR. JARAMILLO TO FOLLOW BLOODWORK. <Chio Jaeger - Last Filed: 02/23/19 06:04> <Sean Jaramillo - Last Filed: 02/23/19 06:21> - Clinical Impression Clinical Impression: Chest pain - Disposition Condition: FAIR
[2019-02-23] MEDS ORDERED: Alum-Mag Hydrox-Simethicone Susp (30 mL) PO ONE (05:28)
[2019-02-23] MEDS ORDERED: Alum-Mag Hydrox-Simethicone Susp (30 mL) ONE (05:37)
[2019-02-23 05:47] LABS: BASO % 0.3 % (0.0-2.0); EOS # 0.3 K/uL (0.0-0.7); EOS % 2.4 % (0.0-4.0); HEMOGLOBIN 13.6 g/dL (12.0-18.0); LYMPH # 2.6 K/uL (1.0-4.3); LYMPH % 22.6 % (20.0-40.0); MEAN CELL VOLUME 89.6 fl (80.0-94.0); MEAN CORPUSCULAR HEMOGLOBIN 29.9 pg (27.0-31.0); MEAN CORPUSCULAR HGB CONC 33.4 g/dL (33.0-37.0); MEAN PLATELET VOLUME 7.7 fl (7.2-11.7); MONO # 0.9 K/uL (0.0-0.8); MONO % 7.5 % (0.0-10.0); NEUT # 7.9 K/uL (1.8-7.0); NEUT % 67.2 % (50.0-75.0); NRBC % 0.1 % (0.0-0.0); RBC 4.54 Mil/uL (4.40-5.90); RED CELL DISTRIBUTION WIDTH 13.7 % (11.5-14.5); WHITE BLOOD COUNT 11.7 K/uL (4.8-10.8)
[2019-02-23 06:01] LABS: ALB/GLOB RATIO 1.2 (1.0-2.1); ALBUMIN 3.9 g/dL (3.5-5.0); ALT/SGPT 33 U/L (21-72); AST/SGOT 29 U/L (17-59); BLOOD UREA NITROGEN 20 mg/dl (9-20); GFR NON-AFRICAN AMERICAN > 60; LIPASE 379 U/L (23-300)
[2019-02-23 07:19] VITALS: BP 130/83; PULSE 68; TEMP 98.3; O2SAT 98
--- NOTE | 2019-02-23 09:34 | CARD ---
APPROVED REPORT Date of service: 02/23/2019 EKG Measurement Heart [id number] <Conclusion> Normal sinus rhythm ST elevation, probably due to early repolarization Borderline ECG
--- NOTE | 2019-02-23 10:01 | RAD ---
Date of service: 02/23/2019 HISTORY: CP COMPARISON: 12/13/2018 TECHNIQUE: 1 view obtained. FINDINGS: LUNGS: No active pulmonary disease. PLEURA: No significant pleural effusion identified, no pneumothorax apparent. CARDIOVASCULAR: No aortic atherosclerotic calcification present. Normal cardiac size. No pulmonary vascular congestion. OSSEOUS STRUCTURES: No significant abnormalities. VISUALIZED UPPER ABDOMEN: Normal. OTHER FINDINGS: None. IMPRESSION: No active disease.
== END 2019-02-23 06:50 | disposition home or self-care (01) ==
LOC: H.ER 04:44
DX: F14.10 Cocaine abuse, uncomplicated (principal); Z86.59 Personal history of other mental and behavioral disorders; J45.909 Unspecified asthma, uncomplicated; Z00.8 Encounter for other general examination